=== PATIENT | female | born 1945 | race Caucasian/White ===

== ENCOUNTER → 2018-08-23 12:06 | Outpatient (CLI) | payer MEDICARE, SELFPAY ==
[2016-10-30 21:30] VITALS: BMI 52.5
[2018-08-23 14:05] LABS: Hematocrit 45.9 % (37-47); Hemoglobin 14.5 g/dl (12.0-15.0); Mean Corp Hgb Conc 31.6 g/gl (32-36); Mean Corpuscular Hgb 29.6 pg (27.0-32.0); Mean Corpuscular Volume 93.7 fL (81-99); Mean Platelet Vol. 9.6 fl (6.2-12.0); Platelet Count 229 K/mm3 (150-450); RBC Distribution Width CV 13.7 % (11.6-14.6); RBC Distribution Width SD 45.2 fl (35.1-43.9); Scan Indicated on CBC? Y/N NO
[2018-08-23 14:21] LABS: ALB/GLOB Ratio 0.8 RATIO (0.9-2.4); AST(SGOT) 25 U/L (15-37); Alanine Aminotransfer ALT/SGPT 35 U/L (13-56); Albumin, Serum 3.5 g/dL (3.2-5.0); Alkaline Phosphatase 105 U/L (45-117); Anion Gap 4 (5-15); BUN 18 mg/dL (7-18); BUN/Creat Ratio 15.1 RATIO (10-20); Calcium,Total 8.5 mg/dL (8.5-10.1); Chloride 105 mmol/L (98-107); Cholesterol 136 mg/dL (200); Creatinine, Serum 1.19 mg/dL (0.55-1.02); EST Glomerular Filtration Rate 47 mL/min (>60); Est Glom Filt Rate - Afr Amer 57 mL/min (>60); Globulin 4.2 g/dL (2.2-4.2); Glucose 89 mg/dL (74-106); High Density Lipoprotein 55 mg/dL; Protein, Total 7.7 g/dL (6.4-8.2); Sodium Level 138 mmol/L (136-145); Triglycerides 123 mg/dL; Very Low Density Lipoprotein 25 mg/dL (5-40)
== END ==
PROVIDERS: Family Provider Internal Medicine; PCP Internal Medicine; Referring Provider Internal Medicine; Visit Provider Internal Medicine
DX: E78.2 Mixed hyperlipidemia (principal); I10 Essential (primary) hypertension; Z79.899 Other long term (current) drug therapy
CPT/HCPCS: 36415; 80053; 80061; 85027

== ENCOUNTER 2020-04-26 10:23 | Emergency (ER) | payer MEDICARE, SELFPAY ==
[2020-04-26 10:24] VITALS: BP 156/74; PULSE 102; RESP 16; TEMP 36.2; O2SAT 97; BMI 47.5
[2020-04-26 10:31] VITALS: BMI 51.7
--- NOTE | 2020-04-26 10:54 | ED.DCSUM_ITS ---
- ER Visit Summary Date of Service: 04/26/20 Chief Complaint: Right leg redness History of Present Illness: The patient is a [address] Chun. She reports that she has chronic swelling of her lower extremities that is essentially unchanged. However, she developed redness to her right leg 2 weeks ago that is gradually worsened. She is also had weeping from the leg. She complains of an aching pain is 10-10 worsened to a 10 currently. Is worsened by dependent position. She relieved by elevating, support stockings, and keeping clean. She denies any numbness or weakness. She denies any constitutional symptoms. No fever, chills, nausea, or vomiting. On review of systems patient reports that she has a chronic cough that is unchanged. She denies any fever, chills, chest pain, or shortness of breath. She reports that her last bowel movement was 2 days ago. Typically she goes every 2 to 3 days. Physical Examination: Vitals: Stable. Afebrile. General: Well-nourished and well-developed. Head: Normocephalic atraumatic. Neck: Supple, no lymphadenopathy. No JVD. Nontender. Cardiovascular: Regular rate and rhythm. 2 out of 6 systolic murmur. Respiratory: No respiratory distress. Clear to auscultation bilaterally. Abdominal: Soft, nontender, nondistended, normal bowel sounds. No guarding, rebound, or peritoneal signs. Back: Nontender. Extremities: 2+ pitting edema lower extremities bilaterally right greater than left. There are chronic venous stasis changes bilaterally. However, on the right there is anterior erythema and warmth with multiple superficial erosions with weeping. There is no induration or fluctuance. She is neurovascular intact distally. However, I am unable to palpate a dorsalis pedis pulse bilaterally. She has less than 2-second capillary refill. Skin: Normal color, no rash. Neurologic: Alert and oriented ?3. Cranial nerves II through XII are intact. Normal strength and sensation. Psych: Normal affect. Test Results: CBC shows a white count of 13.8 with segmented neutrophils 78 lymphocytes of 6. Monocytes are 12. Chem-7 shows a glucose 107. LFTs show an albumin of 2.7, globulin 4.6, total bili 1.1. INR is 1.3. PTT is normal. Lactate is normal. Emergency Department Course and Treatment: Patient had an IV placed. She refused pain medications. She was given vancomycin and Unasyn IV. She feels well and would like to go home. Treatment Plan: Patient will be discharged with instructions to follow-up with her primary care physician in 2 days for a wound check. She is also given information for the wound clinic. She is placed on Bactrim and Keflex. Return to the emergency department for any worsening symptoms. Disposition: To home in improved and stable condition. Impression: 1. Peripheral edema, chronic. 2. Cellulitis right leg. This note was generated with [employer] dictation software. It may contain incorrect words, spelling, and punctuation that were not noted in review of the chart prior to signing ED Disposition - Plan for ED Patient: Instructions: Cellulitis Prescriptions: Smz/Tmp Ds [Bactrim Ds] 1 tablet PO BID #20 tablet Docusate Sodium [Colace] 100 mg PO DAILY #20 capsule Cephalexin [Keflex] 500 mg PO Q6 #40 capsule Hydrocodone Bitart/Apap 5-325 [[place] 5MG-325MG] 1 tablet PO Q4H PRN PRN 2 Days #10 tablet PRN Reason: Pain Referrals: Zeina Lam MD [Primary Care Provider] - 2 Days for wound check Clinic,Wound [None] - As soon as possible
[2020-04-26 11:37] VITALS: BP 139/94; PULSE 104; RESP 22; O2SAT 100
[2020-04-26 11:37] LABS: Absolute Lymphocyte Count 0.82 X10^3/uL (0.83-4.51); Absolute Neutrophil Count 10.8 X10^3/uL (2.0-7.7); Basophil# 0.07 X10^3/uL; Basophil% 0.5 % (0-1); Eosinophil# 0.46 X10^3/uL; Eosinophils% 3.3 % (0-5); Hematocrit 40.2 % (37-47); Hemoglobin 12.5 g/dL (12.0-15.0); Lymphocyte # 0.82 X10^3/ul (4.0); Lymphocyte % 5.9 % (19-41); Mean Corp Hgb Conc 31.1 g/dL (32-36); Mean Corpuscular Hgb 29.3 pg (27.0-32.0); Mean Corpuscular Volume 94.1 fL (81-99); Mean Platelet Vol. 9.6 fl (6.2-12.0); Monocyte# 1.59 X10^3/uL; Monocyte% 11.5 % (0-10); NRBC Flagged by Analyzer 0 % (0-5); Neutrophil % 78.2 % (47-70); POSITIVE DIFFERENTIAL YES; Platelet Count 293 K/mm3 (150-450); RBC Distribution Width CV 13.5 % (11.6-14.6); RBC Distribution Width SD 46.9 fl (35.1-43.9); Red Blood Count 4.27 M/mm3 (4.2-5.4); White Blood Count 13.8 K/mm3 (4.4-11.0)
[2020-04-26 11:40] LABS: ALB/GLOB Ratio 0.6 RATIO (0.9-2.4); AST(SGOT) 20 U/L (15-37); Alanine Aminotransfer ALT/SGPT 28 U/L (13-56); Albumin, Serum 2.7 g/dL (3.2-5.0); Alkaline Phosphatase 104 U/L (45-117); Anion Gap 2 (5-15); BUN 15 mg/dL (7-18); BUN/Creat Ratio 15.4 RATIO (10-20); Calcium,Total 8.7 mg/dL (8.5-10.1); Chloride 106 mmol/L (98-107); Creatinine, Serum 0.97 mg/dL (0.55-1.02); EST Glomerular Filtration Rate 59 mL/min (>60); Est Glom Filt Rate - Afr Amer 72 mL/min (>60); Estimated Creatinine Clearance 38.41 ml/min; Globulin 4.6 g/dL (2.2-4.2); Glucose 107 mg/dL (74-106); Protein, Total 7.3 g/dL (6.4-8.2); Sodium Level 138 mmol/L (136-145)
[2020-04-26 11:41] LABS: International Normalized Ratio 1.3; Prothrombin Time (Protime)PT. 15.3 SECONDS (11.7-14.9)
[2020-04-26 11:42] LABS: Partial Thromboplast Time 35.7 Seconds (24.1-36.2)
[2020-04-26 11:44] LABS: Differential Indicated SCAN CRITERIA MET
[2020-04-26 11:50] LABS: Lactic Acid 1.4 mmol/L (0.4-1.9)
[2020-04-26 12:05] LABS: Differential Comment SCANNED
[2020-04-26 12:47] VITALS: BP 125/82; PULSE 102; RESP 16; TEMP 37.3; O2SAT 97
[2020-04-26 14:05] VITALS: BP 127/83; PULSE 116; RESP 21; O2SAT 97
[2020-04-26 15:20] VITALS: BP 139/89; PULSE 112; RESP 23; O2SAT 97
[2020-04-28 13:29] LABS: Pathologist Review Reviewed
== END 2020-04-26 15:21 | disposition home or self-care (01) ==
LOC: ED 11:22
PROVIDERS: Emergency Provider Emergency Medicine; PCP Internal Medicine
DX: R60.9 Edema, unspecified (principal); L03.115 Cellulitis of right lower limb; E78.00 Pure hypercholesterolemia, unspecified; I10 Essential (primary) hypertension; Z79.82 Long term (current) use of aspirin
CPT/HCPCS: 80053; 83605; 85025; 85610; 85730; 87040; 87070; 87075; 87077; 87186; 87205; 96365; 96366; 96367; 99285; J7030; J7040; J0295

== ENCOUNTER 2020-06-08 21:56 | Inpatient (IN) | payer MEDICARE, SELFPAY ==
[2020-06-08 21:57] VITALS: BP 145/82; PULSE 68; RESP 17; TEMP 36.6; O2SAT 95; BMI 54.6
--- NOTE | 2020-06-08 22:19 | ED.DCSUM_ITS ---
History of Present Illness Chief Complaint: Cellulitis Informant: Patient Onset: Weeks - 1 wk or so - pt unsure, but states has been an issue off and on since March Context: Gradual Onset Timing: Continuous Quality: sore Location: right lower leg Current Severity: Moderate Maximum Severity: Severe Worsened by: trying to walk, palpation Relieved by: resting Associated Symptoms: seeping from leg, redness, swelling. no fevers/chills/systemic sx. Narrative: Patient presents saying that she thinks her right leg is getting worse despite being on 5 days of doxycycline and cephalexin for cellulitis. She states she does not know any of the details, but her son takes care of her, and takes care of her leg and dressing changes, and told her that she needs to come to the hospital because it is getting worse. The patient has some scarring and chronic stasis dermatitis without pain or erythema on the left lower extremity and states that is what her right lower extremity usually looks like. However she has no idea when the redness started in her right lower extremity, or how it looked when she started the antibiotics compared to how it looks now. She states it was not seeping when she started the antibiotics but now it is. When asked what is seeping out, she states she is not sure. She denies any numbness in her feet, but states that the pain and swelling is getting worse in her hindfoot/ankle area. She usually walks with a cane, however she is not able to get around now due to the pain. Prior similar symptoms: Yes - w/ cellulitis - Past Medical History (1) Hypertension Status: Chronic (2) Hyperlipidemia Status: Chronic Past Medical History - Allergies and Home Meds Allergies/Adverse Reactions: Allergies ciprofloxacin [From Cipro] Allergy (Verified 06/08/20 21:58) Rash Primary Care Physician: Zeina Lam MD [Primary Care Provider] - Surgical History: hysterectomy Lives: With Family Smoking Status: Never smoker Review of Systems General: Denies: Chills, Fever, Sweats Eyes: Denies: Visual changes - bilaterally, Diplopia ENT: Denies: Rhinorrhea, Sore throat Cardiovascular: Denies: Chest pain, Palpitations Respiratory: Denies: Dyspnea, Cough, Dyspnea on exertion Gastrointestinal: Denies: Abdominal pain, Nausea, Vomiting, Diarrhea, Melena, Hematochezia Genitourinary: Denies: Dysuria, Hematuria, Frequency Musculoskeletal: Reports: Swelling, Extremity Pain. Denies: Back pain Skin: Denies: Rash, Wounds Neurological: Denies: Headache, Weakness, Numbness Physical Exam Vital Signs/Narrative: Vital Signs Temp Pulse Resp BP Pulse Ox 06/08/20 21:57 97.8 F 68 17 145/82 H 95 Inital Vital Signs reviewed: Yes General: Well nourished, Well developed, Obese, No Acute Distress Head: Normocephalic, Atraumatic Eyes: Perrl, EOMI ENT: Moist mucous membranes, No rhinorrhea Neck: Supple, Nontender Cardiovascular: Regular rate, Regular rhythm, No murmurs. Negative for: Tachycardia Respiratory: No distress, CTA bilaterally, Chest nontender Abdomen: Soft, Nontender, Nondistended, Normal bowel sounds Back: Nontender, Normal Inspection Extremities: Tenderness - Right lower leg erythema/cellulitis, Edema - Bilateral lower extremity edema with signs of chronic stasis dermatitis without tenderness or infection on the left lower leg, with worse edema up to the proximal marcano with tender erythema, consistent with acute cellulitis down to the midfoot., - - No abscess in the right lower leg. There are several superficially open areas with no expressible discharge but they are moist. There is no pus present. Patient is able to move her ankle and knee and toes. All compartments are soft and nondistended. No lymphangitis. Skin: Rash - Right lower leg cellulitis, worse anteriorly Neurological: Alert, Oriented x3, Cranial nerves II-XII grossly intact, Normal Strength, Normal Sensation Psychological: Normal affect, Normal Mood Diagnostic/Tx/Re-eval Impressions Tibia/Fibula X-Ray 06/08/20 22:44 IMPRESSION: Soft tissue edema of the calf with what is thought to be vascular calcifications in the soft tissues about the upper ankle. Electronically Signed: Keenan Cash DO at 23:28 EST Tel [phone], Service support , 06/08/20 22:44 Tibia & Fibula 2 Views [RAD] Stat Laboratory Results 06/08/20 06/08/20 06/08/20 22:40 22:40 22:40 WBC 14.1 H RBC 4.75 Hgb 14.2 Hct 44.1 MCV 92.8 MCH 29.9 MCHC 32.2 RDW Std Deviation 48.8 H RDW Coeff of Damian 14.4 Plt Count 271 MPV 9.5 Immature Gran % (Auto) 0.600 Neut % (Auto) 73.6 H Lymph % (Auto) 10.4 L [place] % (Auto) 10.6 H Eos % (Auto) 4.0 Baso % (Auto) 0.8 Absolute Neuts (auto) 10.4 H Absolute Lymphs (auto) 1.47 Nucleated RBC % 0 Sodium Cancelled Potassium Cancelled Chloride Cancelled Carbon Dioxide Cancelled Anion Gap Cancelled BUN Cancelled Creatinine Cancelled Estim Creat Clear Calc Cancelled Est GFR (MDRD) Af Amer Cancelled Est GFR (MDRD) Non-Af Cancelled BUN/Creatinine Ratio Cancelled Glucose Cancelled Lactic Acid Cancelled Calcium Cancelled 06/08/20 06/08/20 23:25 23:25 WBC RBC Hgb Hct MCV MCH MCHC RDW Std Deviation RDW Coeff of Damian Plt Count MPV Immature Gran % (Auto) Neut % (Auto) Lymph % (Auto) [place] % (Auto) Eos % (Auto) Baso % (Auto) Absolute Neuts (auto) Absolute Lymphs (auto) Nucleated RBC % Sodium 138 Potassium 5.5 H Chloride 107 Carbon Dioxide 26.0 Anion Gap 5 BUN 16 Creatinine 1.01 Estim Creat Clear Calc 33.51 Est GFR (MDRD) Af Amer 68 Est GFR (MDRD) Non-Af 57 L BUN/Creatinine Ratio 15.8 Glucose 89 Lactic Acid 1.7 Calcium 9.0 - Rhythm Strip Rhythm Strip: A-fib Rate: 90 Ectopy: None - EKG Initial EKG Interpretation: No Acute Injury Pattern, Atrial Fibrillation, Non-Specific ST Changes - diffuse T-wve flattening. narrow QRS. - Medical Decision Making Labs obtained including x-ray which shows no evidence of osteomyelitis radiographically, patient started on vancomycin empirically after blood cultures obtained, there is nothing coming from the wound that is able to be cultured at this time. Patient clinically and hemodynamically stable. Plan is for admission to medical surgical floor for continued treatment with IV antibiotics and further evaluation. Patient's potassium returned at 5.5, in context of normal renal function. There is hemolysis present. Therefore this is probably false. EKG will be obtained to verify she does not have any changes of hyperkalemia, and the potassium will be repeated, and as long as it is okay we will admit her to medical surgical floor without telemetry. ED Disposition - Plan for ED Patient: Disposition: Acute Care Hospital [facility] Diagnosis: Cellulitis of right lower leg, Failure of outpatient treatment Referrals: Zeina Lam MD [Primary Care Provider] -
--- NOTE | 2020-06-08 22:44 | RAD_ITS ---
STUDY: X-RAY - RIGHT TIBIA AND FIBULA REASON FOR EXAM: Female, 75 years old. Right lower leg redness and edema. TECHNIQUE: view(s) of the tibia and fibula were obtained. COMPARISON: None. FINDINGS: Normal visualized tibia. Normal visualized fibula. There is no acute fracture, dislocation or destructive osseous pathology. There are degenerative changes of the knee and ankle. Swelling the soft tissues. There is irregular calcification within the soft tissues about the lower leg and ankle. Question venous calcifications. RAD/Tibia & Fibula 2 Views IMPRESSION: Soft tissue edema of the calf with what is thought to be vascular calcifications in the soft tissues about the upper ankle. Electronically Signed: Keenan Cash DO at 23:28 EST Tel [phone], Service support ,
[2020-06-08 22:51] LABS: Absolute Lymphocyte Count 1.47 X10^3/uL (0.83-4.51); Absolute Neutrophil Count 10.4 X10^3/uL (2.0-7.7); Basophil# 0.11 X10^3/uL; Basophil% 0.8 % (0-1); Eosinophil# 0.56 X10^3/uL; Hematocrit 44.1 % (37-47); Hemoglobin 14.2 g/dL (12.0-15.0); Lymphocyte # 1.47 X10^3/ul (4.0); Lymphocyte % 10.4 % (19-41); Mean Corp Hgb Conc 32.2 g/dL (32-36); Mean Corpuscular Hgb 29.9 pg (27.0-32.0); Mean Corpuscular Volume 92.8 fL (81-99); Mean Platelet Vol. 9.5 fl (6.2-12.0); Monocyte# 1.49 X10^3/uL; Monocyte% 10.6 % (0-10); NRBC Flagged by Analyzer 0 % (0-5); Neutrophil % 73.6 % (47-70); Platelet Count 271 K/mm3 (150-450); RBC Distribution Width CV 14.4 % (11.6-14.6); RBC Distribution Width SD 48.8 fl (35.1-43.9); Red Blood Count 4.75 M/mm3 (4.2-5.4); White Blood Count 14.1 K/mm3 (4.4-11.0)
[2020-06-08 22:58] VITALS: BP 152/70; PULSE 93; RESP 18; TEMP 36.5; O2SAT 96
--- NOTE | 2020-06-08 23:54 | PCM.HP.STD ---
Problem List (1) Cellulitis of right lower leg Status: Acute (2) Failure of outpatient treatment Status: Acute (3) Morbidly obese Status: Chronic (4) Hypertension Status: Chronic Qualifiers: Hypertension type: essential hypertension Qualified Code(s): I10 - Essential (primary) hypertension (5) Hyperlipidemia Status: Chronic Qualifiers: Hyperlipidemia type: unspecified Qualified Code(s): E78.5 - Hyperlipidemia, unspecified History of Present Illness Date of Admission: 06/08/20 Chief Complaint: RLE pain, edema, redness, worsening. The patient is a 75 y/o F w/ PMHx: Morbid Obesity, HTN, HLD, Chronic BL LE Lymphedema who presents to the [facility] ED on 06/08/20 with history of onset right lower extremity wound although she was seen previously for the similar area with increased discomfort, worse with walking, seeping from her leg with increased redness and swelling to the region recently on 5 days of doxycycline and Keflex for cellulitis without improvement prompting eventual ED evaluation. Patient notes that she has yet to follow-up with wound care and states intention to follow-up with wound care and Li specifically. Work-up in the ED included T 97.8, heart rate 68, BP 145/82, respiratory rate 17, 95% room air, CBC with WC 14.1, hemoglobin 13.2, platelet 271 with left shift, blood culture x2 pending per ED, right lower extremity film of the tibia and fibula region with soft tissue edema of the calf with likely vascular calcifications in the soft tissues about the upper ankle. In the ED patient ministered vancomycin. Noted 04/26/2020 wound culture with staph aureus with resistance to erythromycin and clindamycin only. Past Medical History Past Medical History (Chronic Problems): Chronic Problems Hypertension (Chronic) Hyperlipidemia (Chronic) Morbidly obese (Chronic) Allergies ciprofloxacin [From Cipro] Allergy (Verified 06/08/20 21:58) Rash Home Medications: Ambulatory Orders Medication Instructions Recorded Aspirin 81 mg PO DAILY 04/26/20 Atorvastatin Calcium [Lipitor] 10 mg PO QHS 04/26/20 Cephalexin [Keflex] 500 mg PO Q6 #40 cap 04/26/20 Lisinopril 20 mg PO DAILY 04/26/20 Metoprolol Tartrate 50 mg PO BID 04/26/20 Spironolactone 25 mg PO DAILY 04/26/20 Doxycycline 100 mg PO BID 06/08/20 Surgical History: hysterectomy - Remote hysterectomy with possible appendectomy at that time but unclear. Psychiatric History: No pertinent psych hx [employer] History: No pertinent [employer] history Lives: With Family - Patient notes that she has at home and her 3 children are living with her. Smoking Status: Never smoker Tobacco Use: Non-smoker Alcohol: None Drugs: None - *Family History Maternal History Items: Hypertension Paternal History Items: Hypertension Review of Systems Constitutional: Reports: Malaise, Fatigue. Denies: Anorexia, Chills, Fever, Weakness, Weight Change HEENT: Denies: Head Aches, Sinus Congestion, Sinus Drainage Cardiovascular: Reports: Edema. Denies: Chest Pain, Palpitations Respiratory: Denies: Cough, Shortness of breath at rest, Sputum production Gastrointestinal: Denies: Abdominal Pain, Nausea, Vomiting Genitourinary: Denies: Dysuria Musculoskeletal: Reports: Joint Pain, Leg Pain. Denies: Joint Tenderness Skin: Reports: Skin Changes. Denies: Rash, Wounds Neurological: Denies: Numbness, Tingling, Focal weakness Psychiatric: Denies: Anxiety, Depression, Homicidal Ideations, Suicidal Ideations Hematologic/ Lymphatic: Denies: Easy Bruising, Easy Bleeding VTE Information - Inpt Only VTE Present on Admission: No VTE Mechan Device Prophylaxis: SCD's VTE Pharm Prophylaxis ordered?: Yes Patient Problems: Active and Suspected Problems Cellulitis of right lower leg (Acute) Failure of outpatient treatment (Acute) Subjective: Patient seated upright in the ED bed, fatigued appearance otherwise no acute distress. Objective: Physical Examination: General: awake, alert, oriented x 3 and cooperative, seated upright in the ED bed in no apparent distress. Skin: normal color, turgor, no icterus, cyanosis except significant right lower extremity appearance of erythema from ankle to mid marcano, circumferential, thickened skin, stasis disease, chronic lymphedema to lower extremities. HEENT: AT/NC, EOMI, PERRLA, MMM, no carotid bruits, difficult to assess JVD secondary to thickened neck. Lungs: Diminished breath sounds, moderate decrease BL bases, moderate effort, no rales, ronchi or wheezing. Heart: Regular rate and rhythm; no gallop, rub audible. Abdomen: soft, morbidly obese, NTTP, ND, normal BS, unable to discern HSM secondary to morbidly obese habitus. Extremities: no cyanosis or clubbing, see skin, edema is noted. Neurological: patient awake, alert, oriented x 3; cognitive function intact; pupils equally reactive to light and accomodation; cranial nerves II-XII grossly normal, moving all 4 extremities, no focal deficits, strength mildly to moderately global decrease secondary to current complaints. Psychiatric: affect appears fatigued otherwise normal, no acute evidence of depressive or anxiety feelings. - Physical Exam Vitals/I&O's: Vital Signs Temp Pulse Resp BP Pulse Ox 97.8 F 68 17 145/82 H 95 06/08/20 21:57 06/08/20 21:57 06/08/20 21:57 06/08/20 21:57 06/08/20 21:57 Oxygen Delivery Method Room Air Weight: 280 lb Body Mass Index (BMI) 54.6 Laboratory Results 06/08/20 22:40: WBC 14.1 H, RBC 4.75, Hgb 14.2, Hct 44.1, MCV 92.8, MCH 29.9, MCHC 32.2, RDW Std Deviation 48.8 H, RDW Coeff of Damian 14.4, Plt Count 271, MPV 9.5, Immature Gran % (Auto) 0.600, Neut % (Auto) 73.6 H, Lymph % (Auto) 10.4 L, [place] % (Auto) 10.6 H, Eos % (Auto) 4.0, Baso % (Auto) 0.8, Absolute Neuts (auto) 10.4 H, Absolute Lymphs (auto) 1.47, Nucleated RBC % 0 06/08/20 22:40: Sodium Cancelled, Potassium Cancelled, Chloride Cancelled, Carbon Dioxide Cancelled, Anion Gap Cancelled, BUN Cancelled, Creatinine Cancelled, Estim Creat Clear Calc Cancelled, Est GFR (MDRD) Af Amer Cancelled, Est GFR (MDRD) Non-Af Cancelled, BUN/Creatinine Ratio Cancelled, Glucose Cancelled, Calcium Cancelled 06/08/20 22:40: Lactic Acid Cancelled 06/08/20 23:25: Lactic Acid Pending 06/08/20 23:25: Sodium Pending, Potassium Pending, Chloride Pending, Carbon Dioxide Pending, Anion Gap Pending, BUN Pending, Creatinine Pending, Est GFR (MDRD) Af Amer Pending, Est GFR (MDRD) Non-Af Pending, BUN/Creatinine Ratio Pending, Glucose Pending, Calcium Pending Current Medications Vancomycin HCl 2,000 mg/ (Sodium Chloride) 540 mls @ 250 mls/hr IV X1 ONE Stop: 06/09/20 00:39 Last Admin: 06/08/20 22:40 Dose: 250 mls/hr Documented by: Assessment/Plan All Active Problems Cellulitis of right lower leg (Acute) Failure of outpatient treatment (Acute) The patient is a 75 y/o F w/ PMHx: Morbid Obesity, HTN, HLD, Chronic BL LE Lymphedema who presents to the [facility] ED on 06/08/20 with history of onset right lower extremity wound although she was seen previously for the similar area with increased discomfort, worse with walking, seeping from her leg with increased redness and swelling to the region recently on 5 days of doxycycline and Keflex for cellulitis without improvement prompting eventual ED evaluation. 1. RLE Extremity Cellulitis, failed outpatient antibiotic therapy, complicated by #2: Will admit to [facility], maintain on IV vancomycin given prior wound culture review, will obtain Wound Cx, will obtain Wound MRSA PCR, plan repeat CBC in AM, continue affected extremity elevation above heart when seated and in bed, monitor erythema outline with VS checks, will obtain duplex ultrasound of the lower extremity, as needed pain regimen antiemetic regimen. 2. Chronic bilateral lower extremity lymphedema: We will implement in addition to wound care, snug Barber wraps, elevation, IV Lasix to assist in wound healing given profound edema. 3. Hypertension: Continue home regimen including metoprolol, lisinopril, spironolactone, IV lasix as noted, PRN hydralazine. 4. Hyperlipidemia: Continue home statin regimen. 5. Morbid Obesity: Weight loss and lifestyle changes encouraged, nutrition consulted. 6. DVT prophylaxis: SCDs, Lovenox. 7. CODE status: Patient ALEXIA is her son Riaz, she is not sure if a living will is in place. Encouraged her to review these items routinely and assure these are updated. Discussed CODE status at length including difference between FULL code, DNR-CCA and DNR-CC status. Following discussions about the differences in these status, requested Full Code status. From discussions these have likely not been discussed with her son and encouraged her to review these discussions upon her discharge with her family. Advanced Care Planning Face to Face Time: 16 minutes. Inpatient E&M: 43989 Init Hosp L3 Procedures: 48760 Advncd Care Plan 30 Min
[2020-06-08 23:55] LABS: Anion Gap 5 (5-15); BUN 16 mg/dL (7-18); BUN/Creat Ratio 15.8 RATIO (10-20); Chloride 107 mmol/L (98-107); Creatinine, Serum 1.01 mg/dL (0.55-1.02); EST Glomerular Filtration Rate 57 mL/min (>60); Est Glom Filt Rate - Afr Amer 68 mL/min (>60); Estimated Creatinine Clearance 33.51 ml/min; Glucose 89 mg/dL (74-106); Potassium 5.5 mmol/L (3.5-5.1); Sodium Level 138 mmol/L (136-145)
[2020-06-08 23:58] VITALS: BP 150/98; PULSE 101; RESP 20; TEMP 36.4; O2SAT 95
[2020-06-08 23:58] LABS: Lactic Acid 1.7 mmol/L (0.4-1.9)
--- NOTE | 2020-06-08 23:58 | EKG12_ITS ---
Test Reason : DYSRHYTHMIA Blood Pressure : / mmHG Vent. Rate : 089 BPM Atrial Rate : 267 BPM P-R Int : 000 ms QRS Dur : 066 ms QT Int : 312 ms P-R-T Axes : 000 069 178 degrees QTc Int : 379 ms Atrial fibrillation Low voltage QRS Nonspecific ST and T wave abnormality Abnormal ECG Confirmed by JOCELYN ARGUETA, HAZEL ([id number]), assignment desk editor MACARIO CONLEY ([id number]) on 06/10/2020 8:55:14 AM Referred By: Fatimah Nieves Confirmed By:HAZEL BANKS MD
[2020-06-09] VITALS (9 sets, daily range): BP systolic 100–150; BP diastolic 60–98; PULSE 71–106; RESP 16–20; TEMP 36.4–37.3; O2SAT 93–98; BMI 54.1
--- NOTE | 2020-06-09 00:40 | VDLE_ITS ---
Reason For Study: Pain RIGHT GSV is normal. CFV is compressible, spontaneous, phasic, competent and demonstrates normal augmentation. FV is compressible, spontaneous, phasic, competent and demonstrates normal augmentation. FV distal visualized with color only, pt unable to tolerate compression. POP V is compressible, spontaneous, phasic, competent and demonstrates normal augmentation. T/P Trunk is compressible. PTV is compressible. RT PerV is compressible. Procedure This is a venous duplex using B-mode, color flow and spectral Doppler. Exam performed portable in patient room. A preliminary report was called and/or faxed to [facility] RN. Interpretation Summary There is no evidence of right lower extremity deep vein thrombosis. Right great saphenous vein appears patent and compressible segmentally. Technical limitations with inability to compress the right distal femoral vein due to patient discomfort. Ordering Physician: Fatimah Nieves Referring Physician: Zeina Lam Performed By: Saida Sunshine RVT
--- NOTE | 2020-06-09 01:02 | ED.RN ---
this RN called son to inform him of pt admission
--- NOTE | 2020-06-09 01:27 | PCM.RX.CS ---
Consult Pharmacy has been consulted to manage selected antiobiotic: Vancomycin Type of Consult: New start Suspected Infection: Skin/Soft tissue Labs: Sodium 138 mmol/L (136-145) 06/08/20 23:25 Potassium 4.0 mmol/L (3.5-5.1) 06/09/20 00:29 Chloride 107 mmol/L (98-107) 06/08/20 23:25 Carbon Dioxide 26.0 mmol/L (21.0-32.0) 06/08/20 23:25 Anion Gap 5 (5-15) 06/08/20 23:25 BUN 16 mg/dL (7-18) 06/08/20 23:25 Creatinine 1.01 mg/dL (0.55-1.02) 06/08/20 23:25 Est GFR (MDRD) Af Amer 68 mL/min (>60) 06/08/20 23:25 Est GFR (MDRD) Non-Af 57 mL/min (>60) L 06/08/20 23:25 BUN/Creatinine Ratio 15.8 RATIO (10-20) 06/08/20 23:25 Glucose 89 mg/dL (74-106) 06/08/20 23:25 Weight used for dosin.6 kg Estimated Creatinine Clearance: 57.1 Goal Trough: 15-20 mcg/mL Pharmacy Plan for Drug Dosing: Pharmacy Service will continue to monitor and adjust dosing as required. Medications Vancomycin HCl 1,250 mg/ (Sodium Chloride) 275 mls @ 167 mls/hr IV Q12H PATRICIA Discontinued Medications Vancomycin HCl 2,000 mg/ (Sodium Chloride) 540 mls @ 250 mls/hr IV X1 ONE Stop: 06/09/20 00:39 Last Admin: 06/08/20 22:40 Dose: 250 mls/hr Documented by: Follow-Up Labs: Trough Vancomycin Labs to be done on [date and time ordered]: 06/10 @ 0953
[2020-06-09] MEDS: Furosemide 40 MG/4 ML Vial IV ×2 (01:45→08:07)
--- NOTE | 2020-06-09 02:16 | NURSING ---
Pt refused both scd's and sheldon wraps.
[2020-06-09 03:11] LABS: M R Staph aureus DNA By PCR Negative (Negative); Probe Check PASS; Specimen Processing Control PASS; Staph aureus DNA By PCR NEGATIVE (Negative)
[2020-06-09 07:01] LABS: Absolute Lymphocyte Count 1.54 X10^3/uL (0.83-4.51); Basophil% 0.8 % (0-1); Eosinophil# 0.52 X10^3/uL; Eosinophils% 4.2 % (0-5); Hematocrit 45.5 % (37-47); Hemoglobin 14.3 g/dL (12.0-15.0); Lymphocyte # 1.54 X10^3/ul (4.0); Lymphocyte % 12.4 % (19-41); Mean Corp Hgb Conc 31.4 g/dL (32-36); Mean Corpuscular Hgb 29.2 pg (27.0-32.0); Mean Platelet Vol. 9.2 fl (6.2-12.0); Monocyte# 1.22 X10^3/uL; Monocyte% 9.8 % (0-10); NRBC Flagged by Analyzer 0 % (0-5); Neutrophil % 72.5 % (47-70); Platelet Count 286 K/mm3 (150-450); RBC Distribution Width CV 14.2 % (11.6-14.6); RBC Distribution Width SD 49.1 fl (35.1-43.9); Red Blood Count 4.89 M/mm3 (4.2-5.4); White Blood Count 12.4 K/mm3 (4.4-11.0)
[2020-06-09 07:27] LABS: ALB/GLOB Ratio 0.9 RATIO (0.9-2.4); AST(SGOT) 17 U/L (15-37); Alanine Aminotransfer ALT/SGPT 20 U/L (13-56); Albumin, Serum 3.5 g/dL (3.2-5.0); Alkaline Phosphatase 123 U/L (45-117); Anion Gap 7 (5-15); BUN 14 mg/dL (7-18); BUN/Creat Ratio 13.7 RATIO (10-20); Chloride 105 mmol/L (98-107); Creatinine, Serum 1.02 mg/dL (0.55-1.02); EST Glomerular Filtration Rate 56 mL/min (>60); Est Glom Filt Rate - Afr Amer 68 mL/min (>60); Estimated Creatinine Clearance 33.18 ml/min; Globulin 4.1 g/dL (2.2-4.2); Glucose 90 mg/dL (74-106); Potassium 3.7 mmol/L (3.5-5.1); Protein, Total 7.6 g/dL (6.4-8.2); Sodium Level 140 mmol/L (136-145)
--- NOTE | 2020-06-09 07:31 | PCS.PANDOC ---
PANDEMIC DOCUMENTATION INITIATED: Date: 05/12/2020 Time:
[2020-06-09] MEDS: Enoxaparin 40 MG/0.4 ML Syringe SC ×2 (08:05→21:27)
[2020-06-09] MEDS: Lisinopril 20 MG Tablet PO (08:07)
[2020-06-09] MEDS: Metoprolol Tartrate 50 MG Tablet PO ×2 (08:08→21:27)
[2020-06-09] MEDS: Spironolactone 25 MG Tablet PO (08:08)
[2020-06-09] MEDS: Aspirin 81 MG TAB.CHEW PO (08:08)
[2020-06-09] MEDS: 0.9% Saline Lock 10 ML Syringe IV ×3 (08:08→22:15)
--- NOTE | 2020-06-09 08:36 | NURSING ---
Was asked to see patient for redness to the right lower leg. removed dressing. there was very minimal serous drainage on the old dressing. still some redness noted. there are no large wounds noted, just some weeping areas. wound cultures are still pending. pt states she cannot tolerated BETTY wraps. states they make my legs too hot. pt did allow this nurse to apply dry dressings and wrap with kerlix. pt tolerated well. right leg elevated up on a pillow. see skin photos.
--- NOTE | 2020-06-09 09:15 | NURSING ---
skin photo: right anterior lower leg
--- NOTE | 2020-06-09 09:16 | NURSING ---
skin photo: right posterior lower leg
--- NOTE | 2020-06-09 10:35 | CASEMGMT ---
RN CM Face to Face with patient for initial transition planning/care coordination assessment. RN CM introduced self and role at [facility]. Patient lying in bed, alert and oriented. Patient willing to participate in assessment and is able to answer all questions appropriately. Care providers, pharmacy, and demographics verified. Patient wishes to discharge home, denies need for home health at this time. Patient states she has no further needs or concerns at this time. CM to follow for discharge planning needs that may arise. PCP: Genaro Specialists: none Preferred Pharmacy: [facility] Insurance: [facility] Prescription Benefit: yes Living Will/HPOA: yes, Riaz Bernal son LNOK: sons Living Arrangements: Patient lives with 2 sons and daughter in a 2 story home with bed and bath on first floor. Patient had ramp to enter the home. Patient states that sons assist with care at times. Transportation: sons DME/HHC: Patient states she has BSC, cane, walker, wheelchair, and grab bars at home. Patient denies previous HHC. Disposition Plan: Patient to discharge home with family support and follow-up plans in place. Saida LARA, RN, CM
--- NOTE | 2020-06-09 13:45 | PN_ITS ---
Patient Problems: Active and Suspected Problems Cellulitis of right lower leg (Acute) Failure of outpatient treatment (Acute) Subjective: Patient seen and examined. She was admitted with a complaint of RLE redness, pain and swelling which was gradually worsening.She had been on a 5 day course of doxycycline and Keflex for cellulitis, but symptoms didnt improve. She is being managed for cellulitis of the RLE, and is on IV vancomycin Patient has no complaints this morning. She said pain in her right lower extremity was better. She denied any fever or chills. Imaging done in the ED showed soft tissue edema of the cough with likely vascular calcification in the soft tissues around the right ankle. Wound cultures done on 04/26/2020 grew Staph aureus with resistance to erythromycin and clindamycin. Review of systems otherwise negative. Her tachycardia has resolved and she has remained afebrile. WBC is down to 12.4 today from 14. Vitals/I&O's: Vital Signs Temp Pulse Resp BP Pulse Ox 98.3 F 95 20 H 100/61 95 06/09/20 10:59 06/09/20 10:59 06/09/20 10:59 06/09/20 10:59 06/09/20 10:59 Oxygen Delivery Method Room Air Weight: 275 lb 2.19 oz Body Mass Index (BMI) 54.1 Intake and Output for Last 24 Hours 06/07/20 06/08/20 06/09/20 23:59 23:59 23:59 Intake Total 540 / 540 Output Total 3450 / 3450 Balance -2910 / -2910 General: Alert, Oriented x3, Cooperative, No apparent distress HEENT: Atraumatic, PERRLA, EOMI, Normocephalic Oral: Dry Mucosa Neck: Supple, No JVD, Negative Carotid Bruits Lungs: Clear to auscultation, Normal air movement, No rhonchi, No wheeze Cardiovascular: Regular rate, Regular Rhythm, Normal S1, Normal S2, No murmurs Abdomen: Bowel Sounds Present, Soft, Non Tender, Non-Distended, No Hepato- splenomegaly Extremities: No clubbing, No cyanosis, No edema, Capillary Refill Less than 3 Seconds Skin: - - RLE bandaged from mid marcano to foot. Musculoskeletal: No Tenderness to Palpation of Joints or Extremities Lymphatic: No Cervical, Supraclavicular, or Inguinal Adenopathy Neurological: Cranial nerves II-XII grossly intact, Neuro grossly intact, Motor Exam 5/5 strength throughout Psych/Mental Status: Normal Affect, Appropriate, Alert and oriented to time, place, person, mood and affect Microbiology Past 72 Hours 06/09/20 01:34 Wound - Leg, Right Gram Stain - Final Laboratory Results 06/08/20 22:40: WBC 14.1 H, RBC 4.75, Hgb 14.2, Hct 44.1, MCV 92.8, MCH 29.9, MCHC 32.2, RDW Std Deviation 48.8 H, RDW Coeff of Damian 14.4, Plt Count 271, MPV 9.5, Immature Gran % (Auto) 0.600, Neut % (Auto) 73.6 H, Lymph % (Auto) 10.4 L, Island % (Auto) 10.6 H, Eos % (Auto) 4.0, Baso % (Auto) 0.8, Absolute Neuts (auto) 10.4 H, Absolute Lymphs (auto) 1.47, Nucleated RBC % 0 06/08/20 22:40: Sodium Cancelled, Potassium Cancelled, Chloride Cancelled, Carbon Dioxide Cancelled, Anion Gap Cancelled, BUN Cancelled, Creatinine Cancelled, Estim Creat Clear Calc Cancelled, Est GFR (MDRD) Af Amer Cancelled, Est GFR (MDRD) Non-Af Cancelled, BUN/Creatinine Ratio Cancelled, Glucose Cancelled, Calcium Cancelled 06/08/20 22:40: Lactic Acid Cancelled 06/08/20 23:25: Lactic Acid 1.7 06/08/20 23:25: Sodium 138, Potassium 5.5 H, Chloride 107, Carbon Dioxide 26.0, Anion Gap 5, BUN 16, Creatinine 1.01, Estim Creat Clear Calc 33.51, Est GFR (MDRD) Af Amer 68, Est GFR (MDRD) Non-Af 57 L, BUN/Creatinine Ratio 15.8, Glucose 89, Calcium 9.0 06/09/20 00:29: Potassium 4.0 06/09/20 00:29: Magnesium 2.0 06/09/20 01:34: S.aureus Protein A PCR NEGATIVE, MRSA (PCR) Negative 06/09/20 06:20: WBC 12.4 H, RBC 4.89, Hgb 14.3, Hct 45.5, MCV 93.0, MCH 29.2, MCHC 31.4 L, RDW Std Deviation 49.1 H, RDW Coeff of Damian 14.2, Plt Count 286, MPV 9.2, Immature Gran % (Auto) 0.300, Neut % (Auto) 72.5 H, Lymph % (Auto) 12.4 L, Island % (Auto) 9.8, Eos % (Auto) 4.2, Baso % (Auto) 0.8, Absolute Neuts (auto) 9.0 H, Absolute Lymphs (auto) 1.54, Nucleated RBC % 0 06/09/20 06:20: Sodium 140, Potassium 3.7, Chloride 105, Carbon Dioxide 28.0, Anion Gap 7, BUN 14, Creatinine 1.02, Estim Creat Clear Calc 33.18, Est GFR (MDRD) Af Amer 68, Est GFR (MDRD) Non-Af 56 L, BUN/Creatinine Ratio 13.7, Glucose 90, Calcium 9.0, Total Bilirubin 1.40 H, AST 17, ALT 20, Alkaline Phosphatase 123 H, Total Protein 7.6, Albumin 3.5, Globulin 4.1, Albumin/Globulin Ratio 0.9 Diagnostic Data Tibia/Fibula X-Ray 06/08/20 22:44 IMPRESSION: Soft tissue edema of the calf with what is thought to be vascular calcifications in the soft tissues about the upper ankle. Electronically Signed: Keenan Cash DO at 23:28 EST Tel [phone], Service support , Current Medications Acetaminophen (Acetaminophen 325 Mg Tablet) 650 mg PO Q6H PRN PRN PRN Reason: Pain Score 1-10/Temp > 100.7 F Al Hydroxide/Mg Hydroxide (Mag Hydrox/Al Hydrox/Simeth 30 Ml Udc) 30 ml PO Q6H PRN PRN PRN Reason: Gastric Burning Albuterol Sulfate (Albuterol 2.5 Mg/3 Ml Vial.Neb.) 2.5 mg INHALATION Q2H PRN PRN PRN Reason: Dyspnea, wheezing Aspirin (A[facility]in 81 Mg Tab.Chew) [facility] Last Admin: 06/09/20 08:08 Dose: 81 mg Documented by: Atorvastatin Calcium (Atorvastatin Calcium 10 Mg Tablet) 10 mg PO QHS [facility] Enoxaparin Sodium (Enoxaparin 40 Mg/0.4 Ml Syringe) 40 mg SC BID [facility] Last Admin: 06/09/20 08:05 Dose: 40 mg Documented by: Furosemide (Furosemide 40 Mg/4 Ml Vial) 40 mg IV DAILY [facility] Last Admin: 06/09/20 08:07 Dose: 40 mg Documented by: Guaifenesin (Guaifenesin 10 Ml Udc (200mg/10ml)) 20 ml PO Q4H PRN PRN PRN Reason: COUGH Hydralazine HCl (Hydralazine 20 Mg/Ml Vial) 10 mg IV Q4H PRN PRN PRN Reason: SBP > 160 Vancomycin IV Pharmacy to Dose (1 ea/ Sodium Chloride) 500 mls @ 250 mls/hr IV X1 PRN; Protocol PRN Reason: Rx to Dose Vancomycin HCl 1,250 mg/ (Sodium Chloride) 275 mls @ 167 mls/hr IV Q12H [facility] Last Admin: 06/09/20 11:01 Dose: 167 mls/hr Documented by: Lisinopril (Lisinopril 20 Mg Tablet) 20 mg PO DAILY [facility] Last Admin: 06/09/20 08:07 Dose: 20 mg Documented by: Magnesium Hydroxide (Magnesium Hydroxide 30 Ml Udc) 30 ml PO DAILY PRN PRN PRN Reason: Constipation Melatonin (Melatonin 3 Mg Tablet) 3 mg PO QHS PRN PRN PRN Reason: INSOMNIA Metoprolol Tartrate (Metoprolol Tartrate 50 Mg Tablet) 50 mg PO BID [facility] Last Admin: 06/09/20 08:08 Dose: 50 mg Documented by: Morphine Sulfate (Morphine 2 Mg/Ml Syringe) 2 mg IV Q3H PRN PRN PRN Reason: Pain Score 6-10 Nitroglycerin (Nitroglycerin (Inpatient Use) 0.4 Mg Tab.Subl) 0.4 mg SUBLINGUAL Q5M PRN PRN Reason: CARDIAC/CHEST PAIN Nutritional Formula (Lactose Free) (Ensure Enlive 120 Ml Liquid) 120 ml PO 4X/DAY [facility] Last Admin: 06/09/20 08:06 Dose: 120 ml Documented by: Ondansetron HCl (Ondansetron 4 Mg/2 Ml Vial) 4 mg IV Q8H PRN PRN PRN Reason: NAUSEA/VOMITING Oxycodone HCl (Oxycodone 5 Mg Tablet) 5 mg PO Q4H PRN PRN PRN Reason: Pain Score 4-5 Prochlorperazine Edisylate (Prochlorperazine 10 Mg/2 Ml Vial) 5 mg IV Q4H PRN PRN PRN Reason: Breakthrough nausea/vomiting Psyllium Hydrophilic Mucilloid (Psyllium 1 Packet) 1 packet PO DAILY PRN PRN PRN Reason: Constipation Senna/Docusate Sodium (Senna/Docusate Sodium 1 Tablet) 2 tablet PO BID PRN PRN PRN Reason: Constipation Sodium Chloride (0.9% Saline Lock 10 Ml Syringe) 10 - 40 ml IV UD PRN PRN Reason: SALINE FLUSH Last Admin: 06/09/20 11:01 Dose: 10 ml Documented by: Spironolactone (Spironolactone 25 Mg Tablet) 25 mg PO DAILY [facility] Last Admin: 06/09/20 08:08 Dose: 25 mg Documented by: Throat Lozenges (Benzocaine/Menthol 1 Lozenge) 1 lozenge MUCOUS MEM Q2H PRN PRN PRN Reason: SORE THROAT STROKE Vital Signs/Narrative: Vital Signs Temp Pulse Resp BP Pulse Ox 06/09/20 10:59 98.3 F 95 20 H 100/61 95 Medical Necessity - Tobacco Use Smoking Status: Never smoker Tobacco Use: Non-smoker Assessment/Plan All Active Problems Cellulitis of right lower leg (Acute) Failure of outpatient treatment (Acute) #RLE cellulitis * failed outpatient treatment * on IV vancomycin * wound cultures pending * duplex of RLE was negative for DVT * wound care on board * # Chronic Bilateral LE edema * BETTY wraps * being diuresed with lasix also * wound care on board * # Hypertension: on metoprolol, lisinopril and spironolactone. Hyperkalemia from yesterday has resolved. #Hyperkalemia: Potassium now down to 3.7 from 5.5 on admission. # Morbid obesity: weight and lifestyle changes encouraged. DVT prophylaxis: SCDs, lovenox. Inpatient E&M: [id number] [facility] Hosp L2
[2020-06-09] MEDS: Atorvastatin Calcium 10 MG Tablet PO (21:27)
[2020-06-10] VITALS (7 sets, daily range): BP systolic 93–119; BP diastolic 68–80; PULSE 59–91; RESP 16–18; TEMP 36–36.8; O2SAT 93–96
[2020-06-10 07:15] LABS: Absolute Lymphocyte Count 1.62 X10^3/uL (0.83-4.51); Absolute Neutrophil Count 6.8 X10^3/uL (2.0-7.7); Basophil# 0.08 X10^3/uL; Basophil% 0.8 % (0-1); Eosinophils% 4.9 % (0-5); Hematocrit 43.7 % (37-47); Hemoglobin 13.7 g/dL (12.0-15.0); Lymphocyte # 1.62 X10^3/ul (4.0); Lymphocyte % 15.9 % (19-41); Mean Corp Hgb Conc 31.4 g/dL (32-36); Mean Corpuscular Hgb 29.1 pg (27.0-32.0); Mean Platelet Vol. 9.3 fl (6.2-12.0); Monocyte# 1.14 X10^3/uL; Monocyte% 11.2 % (0-10); NRBC Flagged by Analyzer 0 % (0-5); Neutrophil # 6.84 X10^3/uL (2.7-7.7); Neutrophil % 66.9 % (47-70); Platelet Count 242 K/mm3 (150-450); RBC Distribution Width CV 14.3 % (11.6-14.6); White Blood Count 10.2 K/mm3 (4.4-11.0)
[2020-06-10 07:38] LABS: Anion Gap 7 (5-15); BUN 28 mg/dL (7-18); BUN/Creat Ratio 27.7 RATIO (10-20); Calcium,Total 8.5 mg/dL (8.5-10.1); Chloride 102 mmol/L (98-107); Creatinine, Serum 1.01 mg/dL (0.55-1.02); EST Glomerular Filtration Rate 57 mL/min (>60); Est Glom Filt Rate - Afr Amer 68 mL/min (>60); Estimated Creatinine Clearance 33.51 ml/min; Glucose 80 mg/dL (74-106); Potassium 3.8 mmol/L (3.5-5.1); Sodium Level 136 mmol/L (136-145)
[2020-06-10] MEDS: Aspirin 81 MG TAB.CHEW PO (07:56)
[2020-06-10] MEDS: Spironolactone 25 MG Tablet PO (07:56)
[2020-06-10] MEDS: 0.9% Saline Lock 10 ML Syringe IV ×2 (07:56→11:57)
[2020-06-10] MEDS: Furosemide 40 MG/4 ML Vial IV (07:56)
[2020-06-10] MEDS: Lisinopril 20 MG Tablet PO (07:57)
[2020-06-10] MEDS: Enoxaparin 40 MG/0.4 ML Syringe SC ×2 (07:57→21:27)
--- NOTE | 2020-06-10 08:48 | NURSING ---
In to reassess the redness to the right lower leg. there is still a moderate amount of redness and some warmth noted. minimal drainage noted on the old dressing. new dry dressing applied and wrapped with kerlix. heels elevated up off the bed on pillows.
[2020-06-10 11:11] LABS: Vancomycin, Trough Level 23.6 ug/mL (5.0-15.0)
--- NOTE | 2020-06-10 11:24 | PN_ITS ---
Patient Problems: Active and Suspected Problems Cellulitis of right lower leg (Acute) Failure of outpatient treatment (Acute) Subjective: Patient seen and examined this morning. She has no complaints. Review of systems otherwise negative. WBC has trended down to 10.2. Vitals/I&O's: Vital Signs Temp Pulse Resp BP Pulse Ox 98.2 F 59 L 18 107/70 94 06/10/20 07:49 06/10/20 08:12 06/10/20 07:49 06/10/20 08:12 06/10/20 07:49 Oxygen Delivery Method Room Air Weight: 270 lb 7 oz Body Mass Index (BMI) 54.1 Intake and Output for Last 24 Hours 06/08/20 06/09/20 06/10/20 23:59 23:59 23:59 Intake Total 1090 / 1090 Output Total 3950 / 3950 300 / 300 Balance -2860 / -2860 -300 / -300 General: Alert, Oriented x3, Cooperative, No apparent distress HEENT: Atraumatic, PERRLA, EOMI, Normocephalic Oral: Dry Mucosa Neck: Supple, No JVD, Negative Carotid Bruits Lungs: Clear to auscultation, Normal air movement, No rhonchi, No wheeze Cardiovascular: Regular rate, Regular Rhythm, Normal S1, Normal S2, No murmurs Abdomen: Bowel Sounds Present, Soft, Non Tender, Non-Distended, No Hepato- splenomegaly Extremities: No clubbing, No cyanosis, No edema, Capillary Refill Less than 3 Seconds Skin: - - RLE bandaged from mid marcano to foot. Musculoskeletal: No Tenderness to Palpation of Joints or Extremities Lymphatic: No Cervical, Supraclavicular, or Inguinal Adenopathy Neurological: Cranial nerves II-XII grossly intact, Neuro grossly intact, Motor Exam 5/5 strength throughout Psych/Mental Status: Normal Affect, Appropriate, Alert and oriented to time, place, person, mood and affect Microbiology Past 72 Hours 06/09/20 01:34 Wound - Leg, Right Gram Stain - Final 06/09/20 01:34 Wound - Leg, Right Wound Culture - Preliminary No growth-Final to follow Laboratory Results 06/10/20 06:56: WBC 10.2, RBC 4.70, Hgb 13.7, Hct 43.7, MCV 93.0, MCH 29.1, MCHC 31.4 L, RDW Std Deviation 49.0 H, RDW Coeff of Damian 14.3, Plt Count 242, MPV 9.3, Immature Gran % (Auto) 0.300, Neut % (Auto) 66.9, Lymph % (Auto) 15.9 L, Catron % (Auto) 11.2 H, Eos % (Auto) 4.9, Baso % (Auto) 0.8, Absolute Neuts (auto) 6.8, Absolute Lymphs (auto) 1.62, Nucleated RBC % 0 06/10/20 06:56: Sodium 136, Potassium 3.8, Chloride 102, Carbon Dioxide 27.0, Anion Gap 7, BUN 28 H, Creatinine 1.01, Estim Creat Clear Calc 33.51, Est GFR (MDRD) Af Amer 68, Est GFR (MDRD) Non-Af 57 L, BUN/Creatinine Ratio 27.7 H, Glucose 80, Calcium 8.5 06/10/20 10:27: Vancomycin Trough 23.6 H Current Medications Acetaminophen (Acetaminophen 325 Mg Tablet) 650 mg PO Q6H PRN PRN PRN Reason: Pain Score 1-10/Temp > 100.7 F Al Hydroxide/Mg Hydroxide (Mag Hydrox/Al Hydrox/Simeth 30 Ml Udc) 30 ml PO Q6H PRN PRN PRN Reason: Gastric Burning Albuterol Sulfate (Albuterol 2.5 Mg/3 Ml Vial.Neb.) 2.5 mg INHALATION Q2H PRN PRN PRN Reason: Dyspnea, wheezing Aspirin (Aspirin 81 Mg Tab.Chew) [facility] Last Admin: 06/10/20 07:56 Dose: 81 mg Documented by: Atorvastatin Calcium (Atorvastatin Calcium 10 Mg Tablet) 10 mg PO QHS [facility] Last Admin: 06/09/20 21:27 Dose: 10 mg Documented by: Enoxaparin Sodium (Enoxaparin 40 Mg/0.4 Ml Syringe) 40 mg SC BID [facility] Last Admin: 06/10/20 07:57 Dose: 40 mg Documented by: Furosemide (Furosemide 40 Mg/4 Ml Vial) 40 mg IV DAILY [facility] Last Admin: 06/10/20 07:56 Dose: 40 mg Documented by: Guaifenesin (Guaifenesin 10 Ml Udc (200mg/10ml)) 20 ml PO Q4H PRN PRN PRN Reason: COUGH Hydralazine HCl (Hydralazine 20 Mg/Ml Vial) 10 mg IV Q4H PRN PRN PRN Reason: SBP > 160 Vancomycin IV Pharmacy to Dose (1 ea/ Sodium Chloride) 500 mls @ 250 mls/hr IV X1 PRN; Protocol PRN Reason: Rx to Dose Vancomycin HCl 1,250 mg/ (Sodium Chloride) 275 mls @ 167 mls/hr IV Q12H [facility] Last Infusion: 06/09/20 23:54 Dose: Infused Documented by: Lisinopril (Lisinopril 20 Mg Tablet) 20 mg PO DAILY [facility] Last Admin: 06/10/20 07:57 Dose: 20 mg Documented by: Magnesium Hydroxide (Magnesium Hydroxide 30 Ml Udc) 30 ml PO DAILY PRN PRN PRN Reason: Constipation Melatonin (Melatonin 3 Mg Tablet) 3 mg PO QHS PRN PRN PRN Reason: INSOMNIA Metoprolol Tartrate (Metoprolol Tartrate 50 Mg Tablet) 50 mg PO BID [facility] Last Admin: 06/10/20 08:12 Dose: Not Given Documented by: Morphine Sulfate (Morphine 2 Mg/Ml Syringe) 2 mg IV Q3H PRN PRN PRN Reason: Pain Score 6-10 Nitroglycerin (Nitroglycerin (Inpatient Use) 0.4 Mg Tab.Subl) 0.4 mg SUBLINGUAL Q5M PRN PRN Reason: CARDIAC/CHEST PAIN Nystatin (Nystatin Powder 15gm Bottle) 1 applic TOPICAL BID [facility]; Protocol Ondansetron HCl (Ondansetron 4 Mg/2 Ml Vial) 4 mg IV Q8H PRN PRN PRN Reason: NAUSEA/VOMITING Oxycodone HCl (Oxycodone 5 Mg Tablet) 5 mg PO Q4H PRN PRN PRN Reason: Pain Score 4-5 Prochlorperazine Edisylate (Prochlorperazine 10 Mg/2 Ml Vial) 5 mg IV Q4H PRN PRN PRN Reason: Breakthrough nausea/vomiting Psyllium Hydrophilic Mucilloid (Psyllium 1 Packet) 1 packet PO DAILY PRN PRN PRN Reason: Constipation Senna/Docusate Sodium (Senna/Docusate Sodium 1 Tablet) 2 tablet PO BID PRN PRN PRN Reason: Constipation Sodium Chloride (0.9% Saline Lock 10 Ml Syringe) 10 - 40 ml IV UD PRN PRN Reason: SALINE FLUSH Last Admin: 06/10/20 07:56 Dose: 10 ml Documented by: Spironolactone (Spironolactone 25 Mg Tablet) 25 mg PO DAILY [facility] Last Admin: 06/10/20 07:56 Dose: 25 mg Documented by: Throat Lozenges (Benzocaine/Menthol 1 Lozenge) 1 lozenge MUCOUS MEM Q2H PRN PRN PRN Reason: SORE THROAT STROKE Vital Signs/Narrative: Vital Signs Temp Pulse Resp BP Pulse Ox 06/10/20 08:12 59 L 107/70 06/10/20 07:49 98.2 F 59 L 18 107/70 94 Medical Necessity - Tobacco Use Smoking Status: Never smoker Tobacco Use: Non-smoker Assessment/Plan All Active Problems Cellulitis of right lower leg (Acute) Failure of outpatient treatment (Acute) #RLE cellulitis * failed outpatient treatment * on IV vancomycin * wound cultures show no growth so far * duplex of RLE was negative for DVT * wound care on board * # Chronic Bilateral LE edema * BETTY wraps * being diuresed with lasix IV 40mg daily * wound care on board * # Hypertension: on metoprolol, lisinopril and spironolactone. Hyperkalemia from yesterday has resolved. #Hyperkalemia: resolved. # Morbid obesity: weight and lifestyle changes encouraged. DVT prophylaxis: lovenox 40mg bid. Inpatient E&M: [id number] Subs Hosp L2
[2020-06-10] MEDS: Nystatin Powder 15gm Bottle 1 APPLIC TOPICAL ×2 (11:58→21:27)
--- NOTE | 2020-06-10 13:46 | PCM.RX.CS ---
Consult Pharmacy has been consulted to manage selected antiobiotic: Vancomycin Type of Consult: Follow-up Suspected Infection: Skin/Soft tissue Labs: Sodium 136 mmol/L (136-145) 06/10/20 06:56 Potassium 3.8 mmol/L (3.5-5.1) 06/10/20 06:56 Chloride 102 mmol/L (98-107) 06/10/20 06:56 Carbon Dioxide 27.0 mmol/L (21.0-32.0) 06/10/20 06:56 Anion Gap 7 (5-15) 06/10/20 06:56 BUN 28 mg/dL (7-18) H 06/10/20 06:56 Creatinine 1.01 mg/dL (0.55-1.02) 06/10/20 06:56 Est GFR (MDRD) Af Amer 68 mL/min (>60) 06/10/20 06:56 Est GFR (MDRD) Non-Af 57 mL/min (>60) L 06/10/20 06:56 BUN/Creatinine Ratio 27.7 RATIO (10-20) H 06/10/20 06:56 Glucose 80 mg/dL (74-106) 06/10/20 06:56 Vancomycin Trough 23.6 ug/mL (5.0-15.0) H 06/10/20 10:27 Microbiology: Microbiology 06/09/20 01:34 Wound - Leg, Right Gram Stain - Final 06/09/20 01:34 Wound - Leg, Right Wound Culture - Preliminary No growth-Final to follow Goal Trough: 15-20 mcg/mL Pharmacy Plan for Drug Dosing: VANCOMYCIN LEVEL RECEIVED Current Vancomycin Dose: 1250mg IV Q12hr Number of Doses Received: 4 (3 prior to trough draw, 1 after) Vancomycin Level: 23.6 Hours Since Last Dose: 12hr Renal Function: 1.01 Renal Function Trend: stable Lab/Micro: WCx NGTD Vancomycin Plan/Comments: Trough resulted in a value of 23.6 (goal 15-20), drawn appropriately ~12hrs from last dose. Pt did get additional dose after trough was drawn. Will plan on obtaining a random level 24hrs from last administered dose to assess at that time. HOLD further doses for now. Pending Level: *RANDOM* trough 06/11/20 @1200 Pharmacy Service will continue to monitor and adjust dosing as required.
[2020-06-10] MEDS: Atorvastatin Calcium 10 MG Tablet PO (21:27)
[2020-06-10] MEDS: Metoprolol Tartrate 50 MG Tablet PO (21:27)
[2020-06-11] VITALS (8 sets, daily range): BP systolic 98–116; BP diastolic 60–75; PULSE 86–96; RESP 14–18; TEMP 36.7–37.1; O2SAT 92–96
[2020-06-11 05:59] LABS: Absolute Lymphocyte Count 1.36 X10^3/uL (0.83-4.51); Basophil% 0.9 % (0-1); Eosinophil# 0.55 X10^3/uL; Eosinophils% 4.7 % (0-5); Hemoglobin 13.6 g/dL (12.0-15.0); Lymphocyte # 1.36 X10^3/ul (4.0); Lymphocyte % 11.7 % (19-41); Mean Corp Hgb Conc 32.4 g/dL (32-36); Mean Corpuscular Volume 92.5 fL (81-99); Mean Platelet Vol. 9.6 fl (6.2-12.0); Monocyte# 1.57 X10^3/uL; Monocyte% 13.5 % (0-10); NRBC Flagged by Analyzer 0 % (0-5); Neutrophil # 7.99 X10^3/uL (2.7-7.7); Neutrophil % 68.9 % (47-70); POSITIVE DIFFERENTIAL YES; Platelet Count 255 K/mm3 (150-450); RBC Distribution Width CV 14.2 % (11.6-14.6); RBC Distribution Width SD 48.4 fl (35.1-43.9); Red Blood Count 4.54 M/mm3 (4.2-5.4); White Blood Count 11.6 K/mm3 (4.4-11.0)
[2020-06-11 06:02] LABS: Differential Indicated SCAN CRITERIA MET
[2020-06-11 06:29] LABS: Anion Gap 7 (5-15); BUN 31 mg/dL (7-18); BUN/Creat Ratio 30.4 RATIO (10-20); Calcium,Total 8.6 mg/dL (8.5-10.1); Chloride 100 mmol/L (98-107); Creatinine, Serum 1.02 mg/dL (0.55-1.02); EST Glomerular Filtration Rate 56 mL/min (>60); Est Glom Filt Rate - Afr Amer 68 mL/min (>60); Estimated Creatinine Clearance 33.18 ml/min; Glucose 89 mg/dL (74-106); Sodium Level 136 mmol/L (136-145)
[2020-06-11 06:57] LABS: Differential Comment SCANNED
--- NOTE | 2020-06-11 08:51 | NURSING ---
Removed dressing from the right leg for Dr Pantoja to assess the leg. there was no drainage noted on the old dressing. still moderate redness noted. slight warmth. will leave [facility] at this time.
[2020-06-11] MEDS: Metoprolol Tartrate 50 MG Tablet PO ×2 (09:07→22:13)
[2020-06-11] MEDS: Lisinopril 20 MG Tablet PO (09:07)
[2020-06-11] MEDS: Aspirin 81 MG TAB.CHEW PO (09:08)
[2020-06-11] MEDS: Spironolactone 25 MG Tablet PO (09:08)
[2020-06-11] MEDS: Furosemide 40 MG/4 ML Vial IV (09:08)
[2020-06-11] MEDS: Enoxaparin 40 MG/0.4 ML Syringe SC ×2 (09:08→22:13)
[2020-06-11] MEDS: Nystatin Powder 15gm Bottle 1 APPLIC TOPICAL ×2 (09:08→22:12)
[2020-06-11] MEDS: 0.9% Saline Lock 10 ML Syringe IV ×2 (09:10→15:10)
[2020-06-11 11:42] LABS: Pathologist Review Reviewed
[2020-06-11 12:58] LABS: Vancomycin, Random Level 19.6 ug/mL (0.0-15.0)
--- NOTE | 2020-06-11 13:26 | PN_ITS ---
Patient Problems: Active and Suspected Problems Cellulitis of right lower leg (Acute) Failure of outpatient treatment (Acute) Subjective: Patient seen and examined. She has no complaints and feels well. Plan was to discharge patient today but her white cell count is trended up slightly to 11.6 and her right lower extremity is still erythematous and warm. Review of systems otherwise negative. She has remained hemodynamically stable. Vitals/I&O's: Vital Signs Temp Pulse Resp BP Pulse Ox 98.0 F 96 14 116/75 92 06/11/20 09:02 06/11/20 09:07 06/11/20 09:02 06/11/20 09:02 06/11/20 09:02 Oxygen Delivery Method Room Air Weight: 271 lb 9.752 oz Body Mass Index (BMI) 54.1 Intake and Output for Last 24 Hours 06/09/20 06/10/20 06/11/20 23:59 23:59 23:59 Intake Total 1090 / 1090 275 / 275 Output Total 3950 / 3950 700 / 700 300 / 300 Balance -2860 / -2860 -425 / -425 -300 / -300 General: Alert, Oriented x3, Cooperative, No apparent distress HEENT: Atraumatic, PERRLA, EOMI, Normocephalic Oral: Dry Mucosa Neck: Supple, No JVD, Negative Carotid Bruits Lungs: Clear to auscultation, Normal air movement, No rhonchi, No wheeze Cardiovascular: Regular rate, Regular Rhythm, Normal S1, Normal S2, No murmurs Abdomen: Bowel Sounds Present, Soft, Non Tender, Non-Distended, No Hepato- splenomegaly Extremities: No clubbing, No cyanosis, No edema, Capillary Refill Less than 3 Seconds Skin: - - RLE erythematous, warm to touch from mid [place] to dorsum of right foot. nontender Musculoskeletal: No Tenderness to Palpation of Joints or Extremities Lymphatic: No Cervical, Supraclavicular, or Inguinal Adenopathy Neurological: Cranial nerves II-XII grossly intact, Neuro grossly intact, Motor Exam 5/5 strength throughout Psych/Mental Status: Normal Affect, Appropriate, Alert and oriented to time, place, person, mood and affect Microbiology Past 72 Hours 06/08/20 22:30 Blood Culture (Wb) - Anticubital Right Blood Culture - Preliminary No growth in 48 hours. 06/08/20 22:40 Blood Culture (Wb) - Left Hand Blood Culture - Preliminary No growth in 48 hours. 06/09/20 01:34 Wound - Leg, Right Gram Stain - Final 06/09/20 01:34 Wound - Leg, Right Wound Culture - Preliminary No growth-Final to follow Laboratory Results 06/11/20 05:20: WBC 11.6 H, RBC 4.54, Hgb 13.6, Hct 42.0, MCV 92.5, MCH 30.0, MCHC 32.4, RDW Std Deviation 48.4 H, RDW Coeff of Damian 14.2, Plt Count 255, MPV 9.6, Immature Gran % (Auto) 0.300, Neut % (Auto) 68.9, Lymph % (Auto) 11.7 L, [place] % (Auto) 13.5 H, Eos % (Auto) 4.7, Baso % (Auto) 0.9, Absolute Neuts (auto) 8.0 H, Absolute Lymphs (auto) 1.36, Nucleated RBC % 0, Differential Comment SCANNED, Diff Path Review Reviewed 06/11/20 05:20: Sodium 136, Potassium 4.0, Chloride 100, Carbon Dioxide 29.0, Anion Gap 7, BUN 31 H, Creatinine 1.02, Estim Creat Clear Calc 33.18, Est GFR (MDRD) Af Amer 68, Est GFR (MDRD) Non-Af 56 L, BUN/Creatinine Ratio 30.4 H, Glucose 89, Calcium 8.6 06/11/20 11:58: Random Vancomycin 19.6 H Current Medications Acetaminophen (Acetaminophen 325 Mg Tablet) 650 mg PO Q6H PRN PRN PRN Reason: Pain Score 1-10/Temp > 100.7 F Al Hydroxide/Mg Hydroxide (Mag Hydrox/Al Hydrox/Simeth 30 Ml Udc) 30 ml PO Q6H PRN PRN PRN Reason: Gastric Burning Albuterol Sulfate (Albuterol 2.5 Mg/3 Ml Vial.Neb.) 2.5 mg INHALATION Q2H PRN PRN PRN Reason: Dyspnea, wheezing Aspirin ([facility] 81 Mg [facility].Chew) [facility] Admin: 06/11/20 09:08 Dose: 81 mg Documented by: Atorvastatin Calcium (Atorvastatin Calcium 10 Mg Tablet) 10 mg PO QHS [facility] Last Admin: 06/10/20 21:27 Dose: 10 mg Documented by: Enoxaparin Sodium (Enoxaparin 40 Mg/0.4 Ml Syringe) 40 mg SC BID [facility] Last Admin: 06/11/20 09:08 Dose: 40 mg Documented by: Furosemide (Furosemide 40 Mg/4 Ml Vial) 40 mg IV DAILY [facility] Last Admin: 06/11/20 09:08 Dose: 40 mg Documented by: Guaifenesin (Guaifenesin 10 Ml Udc (200mg/10ml)) 20 ml PO Q4H PRN PRN PRN Reason: COUGH Hydralazine HCl (Hydralazine 20 Mg/Ml Vial) 10 mg IV Q4H PRN PRN PRN Reason: SBP > 160 Vancomycin IV Pharmacy to Dose (1 ea/ Sodium Chloride) 500 mls @ 250 mls/hr IV X1 PRN; Protocol PRN Reason: Rx to Dose Lisinopril (Lisinopril 20 Mg Tablet) 20 mg PO DAILY [facility] Last Admin: 06/11/20 09:07 Dose: 20 mg Documented by: Magnesium Hydroxide (Magnesium Hydroxide 30 Ml Udc) 30 ml PO DAILY PRN PRN PRN Reason: Constipation Melatonin (Melatonin 3 Mg Tablet) 3 mg PO QHS PRN PRN PRN Reason: INSOMNIA Metoprolol Tartrate (Metoprolol Tartrate 50 Mg Tablet) 50 mg PO BID [facility] Last Admin: 06/11/20 09:07 Dose: 50 mg Documented by: Morphine Sulfate (Morphine 2 Mg/Ml Syringe) 2 mg IV Q3H PRN PRN PRN Reason: Pain Score 6-10 Nitroglycerin (Nitroglycerin (Inpatient Use) 0.4 Mg Tab.Subl) 0.4 mg SUBLINGUAL Q5M PRN PRN Reason: CARDIAC/CHEST PAIN Nystatin (Nystatin Powder 15gm Bottle) 1 applic TOPICAL BID [facility]; Protocol Last Admin: 06/11/20 09:08 Dose: 1 applicatio Documented by: Ondansetron HCl (Ondansetron 4 Mg/2 Ml Vial) 4 mg IV Q8H PRN PRN PRN Reason: NAUSEA/VOMITING Oxycodone HCl (Oxycodone 5 Mg Tablet) 5 mg PO Q4H PRN PRN PRN Reason: Pain Score 4-5 Prochlorperazine Edisylate (Prochlorperazine 10 Mg/2 Ml Vial) 5 mg IV Q4H PRN PRN PRN Reason: Breakthrough nausea/vomiting Psyllium Hydrophilic Mucilloid (Psyllium 1 Packet) 1 packet PO DAILY PRN PRN PRN Reason: Constipation Senna/Docusate Sodium (Senna/Docusate Sodium 1 Tablet) 2 tablet PO BID PRN PRN PRN Reason: Constipation Sodium Chloride (0.9% Saline Lock 10 Ml Syringe) 10 - 40 ml IV UD PRN PRN Reason: SALINE FLUSH Last Admin: 06/11/20 09:10 Dose: 10 ml Documented by: Spironolactone (Spironolactone 25 Mg Tablet) 25 mg PO DAILY [facility] Last Admin: 06/11/20 09:08 Dose: 25 mg Documented by: Throat Lozenges (Benzocaine/Menthol 1 Lozenge) 1 lozenge MUCOUS MEM Q2H PRN PRN PRN Reason: SORE THROAT Medical Necessity - Tobacco Use Smoking Status: Never smoker Tobacco Use: Non-smoker Assessment/Plan All Active Problems Cellulitis of right lower leg (Acute) Failure of outpatient treatment (Acute) #RLE cellulitis * failed outpatient treatment * on IV vancomycin; RLE still mildly erythematous and warm to touch * wbc slightly up to 11.6 today. * wound cultures show no growth so far * duplex of RLE was negative for DVT * wound care on board * continue IV # Chronic Bilateral LE edema * BETTY wraps * being diuresed with lasix IV 40mg daily * wound care on board * # Hypertension: on metoprolol, lisinopril and spironolactone. Hyperkalemia has resolved. #Hyperkalemia: resolved. # Morbid obesity: weight and lifestyle changes encouraged. DVT prophylaxis: lovenox 40mg bid. Inpatient E&M: 66979 Subs Hosp L2
--- NOTE | 2020-06-11 14:01 | PHA.PHARE_ITS ---
Consult Pharmacy has been consulted to manage selected antiobiotic: Vancomycin Type of Consult: Follow-up Suspected Infection: Skin/Soft tissue Prior Doses of Antibiotics Received/Current Regimen: the patient was previously on 1250mg IV q12h but that has been held since yesterday after the dose at noon due to a high trough value of 23.6 Labs: Sodium 136 mmol/L (136-145) 06/11/20 05:20 Potassium 4.0 mmol/L (3.5-5.1) 06/11/20 05:20 Chloride 100 mmol/L (98-107) 06/11/20 05:20 Carbon Dioxide 29.0 mmol/L (21.0-32.0) 06/11/20 05:20 Anion Gap 7 (5-15) 06/11/20 05:20 BUN 31 mg/dL (7-18) H 06/11/20 05:20 Creatinine 1.02 mg/dL (0.55-1.02) 06/11/20 05:20 Est GFR (MDRD) Af Amer 68 mL/min (>60) 06/11/20 05:20 Est GFR (MDRD) Non-Af 56 mL/min (>60) L 06/11/20 05:20 BUN/Creatinine Ratio 30.4 RATIO (10-20) H 06/11/20 05:20 Glucose 89 mg/dL (74-106) 06/11/20 05:20 Vancomycin Trough 23.6 ug/mL (5.0-15.0) H 06/10/20 10:27 Random Vancomycin 19.6 ug/mL (0.0-15.0) H 06/11/20 11:58 Microbiology: Microbiology 06/08/20 22:30 Blood Culture (Wb) - Anticubital Right Blood Culture - Preli minary No growth in 48 hours. 06/08/20 22:40 Blood Culture (Wb) - Left Hand Blood Culture - Preliminary No growth in 48 hours. 06/09/20 01:34 Wound - Leg, Right Gram Stain - Final 06/09/20 01:34 Wound - Leg, Right Wound Culture - Preliminary No growth-Final to follow Weight used for dosin.2 kg Estimated Creatinine Clearance: 56ml/min Goal Trough: 15-20 mcg/mL Pharmacy Plan for Drug Dosing: The random level drawn today at 11:58 came back at 19.6. This is back below 20 so, per policy, dosing can be resumed. Will restart at 1500mg IV q24h and recheck a trough before the 3rd new dose. The patient's CrCl of 56 ml/min was calculated using an adjusted body weight of 76.6kg. Pharmacy Service will continue to monitor and adjust dosing as required. Follow-Up Labs: Trough Vancomycin Labs to be done on [date and time ordered]: 06/13/20 14:30
[2020-06-11] MEDS: Atorvastatin Calcium 10 MG Tablet PO (22:13)
[2020-06-12] VITALS (8 sets, daily range): BP systolic 93–153; BP diastolic 55–90; PULSE 62–102; RESP 18–20; TEMP 36.2–36.6; O2SAT 95–99
[2020-06-12 06:13] LABS: Absolute Lymphocyte Count 1.19 X10^3/uL (0.83-4.51); Absolute Neutrophil Count 7.5 X10^3/uL (2.0-7.7); Basophil# 0.07 X10^3/uL; Basophil% 0.7 % (0-1); Eosinophil# 0.53 X10^3/uL; Eosinophils% 5.1 % (0-5); Hematocrit 41.3 % (37-47); Hemoglobin 12.9 g/dL (12.0-15.0); Lymphocyte # 1.19 X10^3/ul (4.0); Lymphocyte % 11.5 % (19-41); Mean Corp Hgb Conc 31.2 g/dL (32-36); Mean Corpuscular Volume 92.8 fL (81-99); Mean Platelet Vol. 9.2 fl (6.2-12.0); Monocyte# 0.98 X10^3/uL; Monocyte% 9.5 % (0-10); NRBC Flagged by Analyzer 0 % (0-5); Neutrophil # 7.52 X10^3/uL (2.7-7.7); Neutrophil % 72.7 % (47-70); Platelet Count 233 K/mm3 (150-450); RBC Distribution Width CV 14.3 % (11.6-14.6); RBC Distribution Width SD 49.5 fl (35.1-43.9); Red Blood Count 4.45 M/mm3 (4.2-5.4); White Blood Count 10.3 K/mm3 (4.4-11.0)
[2020-06-12 06:39] LABS: Anion Gap 4 (5-15); BUN 36 mg/dL (7-18); BUN/Creat Ratio 31.9 RATIO (10-20); Calcium,Total 8.3 mg/dL (8.5-10.1); Chloride 102 mmol/L (98-107); Creatinine, Serum 1.13 mg/dL (0.55-1.02); EST Glomerular Filtration Rate 50 mL/min (>60); Est Glom Filt Rate - Afr Amer 60 mL/min (>60); Estimated Creatinine Clearance 29.95 ml/min; Glucose 117 mg/dL (74-106); Potassium 4.3 mmol/L (3.5-5.1); Sodium Level 136 mmol/L (136-145)
--- NOTE | 2020-06-12 07:53 | NURSING ---
In to reassess the right lower leg. no drainage noted. there is some dry flaky skin noted to the right anterior ankle. redness is slightly improved. pt states much less pain noted in the leg. will keep RN [employer].
[2020-06-12] MEDS: Aspirin 81 MG TAB.CHEW PO (08:54)
[2020-06-12] MEDS: 0.9% Normal Saline 1,000 ML 999 ML IV (09:00)
--- NOTE | 2020-06-12 11:16 | DCINST_ITS ---
- Discharge Diagnoses Current Active Problems: Current Active and Chronic Problems Hypertension (Chronic) Hyperlipidemia (Chronic) Cellulitis of right lower leg (Acute) Failure of outpatient treatment (Acute) Morbidly obese (Chronic) You will use the following diet at home:: Cardiac Your food should be the consistency of: Regular Your liquids should be the consistency of: Regular/Thin Discharge Activity: Return to Normal Activity Weight Bearing Status: Weight bearing as tolerated Call your doctor if you observe: Fever of 101 or Higher, Shortness of breath, Fainting spells, Swelling in the ankles, Increased palpitations (irregular heartbeat), Uncontrolled pain Instructions: ED Cellulitis Allergies/Adverse Reactions: Allergies ciprofloxacin [From Cipro] Allergy (Verified 06/08/20 21:58) Rash Medications to take at Discharge Aspirin 81 mg PO DAILY 04/26/20 Atorvastatin Calcium [Lipitor] 10 mg PO QHS 04/26/20 Lisinopril 20 mg PO DAILY 04/26/20 Metoprolol Tartrate 50 mg PO BID 04/26/20 Spironolactone 25 mg PO DAILY 04/26/20 Cephalexin [Keflex] 500 mg PO Q6 10 Days #40 cap 06/12/20 The following prescriptions were given: Cephalexin [Keflex] 500 mg PO Q6 10 Days #40 cap Transmission Status: Pending to [facility] Primary Care Physician: Zeina Lam MD [Primary Care Provider] - Please follow up with your Primary Care Physician in: 2-3 weeks Test Results: Test results from this visit will be discussed in further detail at your follow- up appointment, if applicable. When: follow up with wound care on outpatient basisn in 1-2 weeks Proposed Discharge Date: 06/12/20
--- NOTE | 2020-06-12 11:21 | PCM.DC.SUM ---
Discharge Date and Diagnosis - Problem List Patient Problems: Active and Suspected Problems Cellulitis of right lower leg (Acute) Failure of outpatient treatment (Acute) Date of Admission: 06/08/20 Date of Discharge: 06/12/20 - Primary Discharge Diagnosis Acute Problems: Active Problems Cellulitis of right lower leg (Acute) Failure of outpatient treatment (Acute) - Secondary Discharge Diagnosis Chronic Problems: Chronic Problems Hypertension (Chronic) Hyperlipidemia (Chronic) Morbidly obese (Chronic) Hospital Course and Treatment Consultations 06/09/20 00:40 Consult: Onc/Wound/information technology director Routine Comment: Summary of Care Provided: The patient is a 75 year old F with a past medical history as outlined was admitted through the ED on 06/08/2020 with a complaint of redness, swelling and seeping from the right lower extremity. She had been on 5 days of doxycycline and Keflex for cellulitis but said her symptoms were getting worse. Has not been taking care of her leg at home. However she decided coming to the ED because it was getting worse. She was admitted and managed for cellulitis of the right lower extremity. She denied having any trauma to her leg or any insect bites of animal bites but did note that she had chronic stasis dermatitis. She was started on IV vancomycin. X-ray done showed no evidence of osteomyelitis. Blood cultures done were negative. Wound care was also consulted. On admission, patient's potassium was elevated but this was thought to be possibly due to hemolysis. On repeat, it was 4.0. Patient remained stable and right lower extremity redness and swelling improved markedly. She was discharged home on 06/12/2020 prescription for p.o. Keflex for 10 days. She is to follow-up with her primary care doctor and is also to follow-up with wound care. Seen and examined prior to discharge. She had no complaints. She felt well. Review of symptoms otherwise negative. Labs and vitals reviewed. Medication reviewed and reconciled. O/E: Vital Signs Temp Pulse Resp BP Pulse Ox 97.2 F L 99 20 H 130/79 H 95 06/12/20 11:58 06/12/20 12:03 06/12/20 12:03 06/12/20 11:58 06/12/20 14:34 [] General: Alert, Oriented x3, Cooperative, No apparent distress HEENT: Atraumatic, PERRLA, EOMI, Normocephalic Oral: Dry Mucosa Neck: Supple, No JVD, Negative Carotid Bruits Lungs: Clear to auscultation, Normal air movement, No rhonchi, No wheeze Cardiovascular: Regular rate, Regular Rhythm, Normal S1, Normal S2, No murmurs Abdomen: Bowel Sounds Present, Soft, Non Tender, Non-Distended, No Hepato-splenomegaly Extremities: No clubbing, No cyanosis, No edema, Capillary Refill Less than 3 Seconds Skin: - - RLE redness and swelling is much better Musculoskeletal: No Tenderness to Palpation of Joints or Extremities Lymphatic: No Cervical, Supraclavicular, or Inguinal Adenopathy Neurological: Cranial nerves II-XII grossly intact, Neuro grossly intact, Motor Exam 5/5 strength throughout Psych/Mental Status: Normal Affect, Appropriate, Alert and oriented to time, place, person, mood and affect Plan is for discharge home today. Patient Problems: Active and Suspected Problems Cellulitis of right lower leg (Acute) Failure of outpatient treatment (Acute) - Physical Exam Vitals/I&O's: Vital Signs Temp Pulse Resp BP Pulse Ox 97.8 F 91 18 132/81 H 96 06/12/20 08:51 06/12/20 10:42 06/12/20 08:51 06/12/20 10:42 06/12/20 08:51 Oxygen Delivery Method Room Air Weight: 274 lb 14.663 oz Body Mass Index (BMI) 54.1 Orthostatic Vital Signs Start: 06/12/20 10:42 Freq: q24h Status: Active Protocol: Activity Type Activity Date Activity User E-Sign Co-Sign Detail Recorded Client Recorded Date Recorded By Document 06/12/20 10:42 [id number] 06/12/20 10:50 NANCY 06/12/20 10:42 Orthostatic Vitals Standing -Blood Pressure (90/60-120/80 mm Hg) 153/87 H -Extremity Use Left Arm -Pulse Rate (60-100 beats/min) 102 H Sitting -Blood Pressure (90/60-120/80 mm Hg) 143/89 H -Extremity Use Left Arm -Pulse Rate (60-100 beats/min) 93 Lying -Blood Pressure (90/60-120/80 mm Hg) 132/81 H -Extremity Use Left Arm -Pulse Rate (60-100 beats/min) 91 Intake and Output for Last 24 Hours 06/10/20 06/11/20 06/12/20 23:59 23:59 23:59 Intake Total 275 / 275 630 / 630 1100 / 1100 Output Total 700 / 700 1850 / 1850 650 / 650 Balance -425 / -425 -1220 / -1220 450 / 450 Microbiology Past 72 Hours 06/09/20 01:34 Wound - Leg, Right Gram Stain - Final 06/09/20 01:34 Wound - Leg, Right Wound Culture - Final No growth aerobically. 06/08/20 22:30 Blood Culture (Wb) - Anticubital Right Blood Culture - Preliminary No growth in 48 hours. 06/08/20 22:40 Blood Culture (Wb) - Left Hand Blood Culture - Preliminary No growth in 48 hours. Laboratory Results 06/11/20 05:20: Diff Path Review Reviewed 06/11/20 11:58: Random Vancomycin 19.6 H 06/12/20 05:55: WBC 10.3, RBC 4.45, Hgb 12.9, Hct 41.3, MCV 92.8, MCH 29.0, MCHC 31.2 L, RDW Std Deviation 49.5 H, RDW Coeff of Damian 14.3, Plt Count 233, MPV 9.2, Immature Gran % (Auto) 0.500, Neut % (Auto) 72.7 H, Lymph % (Auto) 11.5 L, [place] % (Auto) 9.5, Eos % (Auto) 5.1 H, Baso % (Auto) 0.7, Absolute Neuts (auto) 7.5, Absolute Lymphs (auto) 1.19, Nucleated RBC % 0 06/12/20 05:55: Sodium 136, Potassium 4.3, Chloride 102, Carbon Dioxide 30.0, Anion Gap 4 L, BUN 36 H, Creatinine 1.13 H, Estim Creat Clear Calc 29.95, Est GFR (MDRD) Af Amer 60, Est GFR (MDRD) Non-Af 50 L, BUN/Creatinine Ratio 31.9 H, Glucose 117 H, Calcium 8.3 L Current Medications Acetaminophen (Acetaminophen 325 Mg Tablet) 650 mg PO Q6H PRN PRN PRN Reason: Pain Score 1-10/Temp > 100.7 F Al Hydroxide/Mg Hydroxide (Mag Hydrox/Al Hydrox/Simeth 30 Ml Udc) 30 ml PO Q6H PRN PRN PRN Reason: Gastric Burning Albuterol Sulfate (Albuterol 2.5 Mg/3 Ml Vial.Neb.) 2.5 mg INHALATION Q2H PRN PRN PRN Reason: Dyspnea, wheezing Aspirin (Aspirin 81 Mg Tab.Chew) 81 mg PO DAILYCM [facility] Last Admin: 06/12/20 08:54 Dose: 81 mg Documented by: Atorvastatin Calcium (Atorvastatin Calcium 10 Mg Tablet) 10 mg PO QHS [facility] Last Admin: 06/11/20 22:13 Dose: 10 mg Documented by: Enoxaparin Sodium (Enoxaparin 40 Mg/0.4 Ml Syringe) 40 mg SC BID [facility] Last Admin: 06/11/20 22:13 Dose: 40 mg Documented by: Furosemide (Furosemide 40 Mg/4 Ml Vial) 40 mg IV DAILY [facility] Last Admin: 06/12/20 11:13 Dose: Not Given Documented by: Guaifenesin (Guaifenesin 10 Ml Udc (200mg/10ml)) 20 ml PO Q4H PRN PRN PRN Reason: COUGH Hydralazine HCl (Hydralazine 20 Mg/Ml Vial) 10 mg IV Q4H PRN PRN PRN Reason: SBP > 160 Vancomycin IV Pharmacy to Dose (1 ea/ Sodium Chloride) 500 mls @ 250 mls/hr IV X1 PRN; Protocol PRN Reason: Rx to Dose Vancomycin HCl 1,500 mg/ (Sodium Chloride) 530 mls @ 250 mls/hr IV Q24H [facility] Last Infusion: 06/11/20 23:16 Dose: Infused Documented by: Lisinopril (Lisinopril 20 Mg Tablet) 20 mg PO DAILY [facility] Last Admin: 06/11/20 09:07 Dose: 20 mg Documented by: Magnesium Hydroxide (Magnesium Hydroxide 30 Ml Udc) 30 ml PO DAILY PRN PRN PRN Reason: Constipation Melatonin (Melatonin 3 Mg Tablet) 3 mg PO QHS PRN PRN PRN Reason: INSOMNIA Metoprolol Tartrate (Metoprolol Tartrate 50 Mg Tablet) 50 mg PO BID [facility] Last Admin: 06/11/20 22:13 Dose: 50 mg Documented by: Morphine Sulfate (Morphine 2 Mg/Ml Syringe) 2 mg IV Q3H PRN PRN PRN Reason: Pain Score 6-10 Nitroglycerin (Nitroglycerin (Inpatient Use) 0.4 Mg Tab.Subl) 0.4 mg SUBLINGUAL Q5M PRN PRN Reason: CARDIAC/CHEST PAIN Nystatin (Nystatin Powder 15gm Bottle) 1 applic TOPICAL BID [facility]; Protocol Last Admin: 06/11/20 22:12 Dose: 1 applicatio Documented by: Ondansetron HCl (Ondansetron 4 Mg/2 Ml Vial) 4 mg IV Q8H PRN PRN PRN Reason: NAUSEA/VOMITING Oxycodone HCl (Oxycodone 5 Mg Tablet) 5 mg PO Q4H PRN PRN PRN Reason: Pain Score 4-5 Prochlorperazine Edisylate (Prochlorperazine 10 Mg/2 Ml Vial) 5 mg IV Q4H PRN PRN PRN Reason: Breakthrough nausea/vomiting Psyllium Hydrophilic Mucilloid (Psyllium 1 Packet) 1 packet PO DAILY PRN PRN PRN Reason: Constipation Senna/Docusate Sodium (Senna/Docusate Sodium 1 Tablet) 2 tablet PO BID PRN PRN PRN Reason: Constipation Sodium Chloride (0.9% Saline Lock 10 Ml Syringe) 10 - 40 ml IV UD PRN PRN Reason: SALINE FLUSH Last Admin: 06/11/20 15:10 Dose: 10 ml Documented by: Spironolactone (Spironolactone 25 Mg Tablet) 25 mg PO DAILY [facility] Last Admin: 06/11/20 09:08 Dose: 25 mg Documented by: Throat Lozenges (Benzocaine/Menthol 1 Lozenge) 1 lozenge MUCOUS MEM Q2H PRN PRN PRN Reason: SORE THROAT Discharge Diet: Low fat/ Low Cholesterol Discharge Activity: Return to Normal Activity Weight Bearing Status: Weight bearing as tolerated Call your doctor if you observe: Fever of 101 or Higher, Shortness of breath, Fainting spells, Swelling in the ankles, Increased palpitations (irregular heartbeat), Uncontrolled pain Home Medications: Medications to take at Discharge Aspirin 81 mg PO DAILY 04/26/20 Atorvastatin Calcium [Lipitor] 10 mg PO QHS 04/26/20 Lisinopril 20 mg PO DAILY 04/26/20 Metoprolol Tartrate 50 mg PO BID 04/26/20 Spironolactone 25 mg PO DAILY 04/26/20 Cephalexin [Keflex] 500 mg PO Q6 10 Days #40 cap 06/12/20 Following Prescriptions Were Given to Patient: Cephalexin [Keflex] 500 mg PO Q6 10 Days #40 cap Transmission Status: Received by [facility] Primary Care Physician: Zeina Lam MD [Primary Care Provider] - Please follow up with your Primary Care Physician in: 2-3 weeks When: follow up with wound care on outpatient basis in 1-2 weeks Patient Instructions: ED Cellulitis Disposition: Home Minutes spent on discharge:: 50 Patient Condition:: Stable Medical Necessity - Tobacco Use Smoking Status: Never smoker Tobacco Use: Non-smoker Meaningful Use Info Meaningful Use Diagnoses (Choose all that apply): None applicable Inpatient E&M: [id number] [facility]
[2020-06-12] MEDS: Metoprolol Tartrate 50 MG Tablet PO (12:03)
[2020-06-12] MEDS: Lisinopril 20 MG Tablet PO (12:03)
[2020-06-12] MEDS: Spironolactone 25 MG Tablet PO (12:03)
[2020-06-12] MEDS: Nystatin Powder 15gm Bottle 1 APPLIC TOPICAL (12:04)
--- NOTE | 2020-06-12 13:30 | CASEMGMT ---
RN CM in to discuss discharge needs. Patient denies needs at discharge. No further questions or concerns at this time.
[2020-06-12] MEDS: 0.9% Saline Lock 10 ML Syringe IV (14:24)
--- NOTE | 2020-06-13 16:10 | CASEMGMT ---
CHACE FAITH Discharge Follow-Up Phone Call. Erna: 13 Strata:3 Discharge Date: 06/12/20 Adm Dx: Cellulitis Call to pt to inquire about how she has been doing since being discharged from the hospital. She states, I'm doing just fine. She states she has started the antibiotic and tolerating it well. She denies having any questions about any of her medications or about the discharge instructions. Reviewed f/u appts that have been scheduled [facility] and at her PCP's office w/[employer] Junito Nieves. She states she is aware and plans to keep these appts. She denies having any needs/concerns/questions. CHACE FAITH thanked pt for choosing [facility]. She stated, I had a wonderful stay. Ehsan LARA RN, CM
== END 2020-06-12 17:36 | disposition home or self-care (01) | DRG 603 ==
LOC: ED 23:21 → MS3 06-09 00:16
PROVIDERS: Admitting Provider Family Medicine; Emergency Provider Emergency Medicine; PCP Internal Medicine; Referring Provider Family Medicine; Visit Provider Student in an Organized Health Care Education/Training Program
DX: L03.115 Cellulitis of right lower limb (principal); Z68.43 Body mass index [BMI] 50.0-59.9, adult; I10 Essential (primary) hypertension; E78.5 Hyperlipidemia, unspecified; E66.01 Morbid (severe) obesity due to excess calories; Z79.2 Long term (current) use of antibiotics; Z79.899 Other long term (current) drug therapy; I89.0 Lymphedema, not elsewhere classified; R60.0 Localized edema
CPT/HCPCS: 36415; 73590; 80048; 80053; 80202; 83605; 83735; 84132; 85025; 87040; 87070; 87205; 87640; 93005; 93971; 97110; 97116; 97162; 97166; 97530; 97802; 99285; J7030; J7040; J7050; A4216; J1940

== ENCOUNTER 2020-07-02 10:00 | Outpatient (RCR) | payer MEDICARE, SELFPAY ==
[2020-06-09 00:41] VITALS: BMI 54.1
[2020-06-18 10:31] VITALS: BP 126/80; PULSE 103; RESP 18; TEMP 36.1; BMI 54.6
[2020-06-18 11:58] VITALS: BP 122/80
--- NOTE | 2020-06-18 12:08 | HP.PCM_ITS ---
(1) Stasis dermatitis of both legs Status: Acute Code(s): I87.2 - Venous insufficiency (chronic) (peripheral) (2) Cellulitis of right lower leg Status: Acute Code(s): L03.115 - Cellulitis of right lower limb (3) Morbidly obese Status: Chronic Code(s): E66.01 - Morbid (severe) obesity due to excess calories (4) Edema of right lower leg due to peripheral venous insufficiency Status: Acute Code(s): I87.2 - Venous insufficiency (chronic) (peripheral); R60.0 - Localized edema History of Present Illness Date of Service: 06/18/20 Chief Complaint: Follow-up cellulitis right lower leg History of Wound: 75-year-old white female with morbid obesity. Developed a recurring but not frequent cellulitis to the right lower leg. Her first episode was in [facility] that was cleared with antibiotics. And reoccurred around [place]. There is no open wounds the skin is cracked dry flaky erythematous with satellite erythema and her dorsal foot is very swollen. Patient is currently on cephalexin twice a day and she said she did best when she was on Bactrim DS. Patient had been seen in the emergency room in April and culture shows staph. Patient has been on several antibiotics but did not tolerate some is allergic to Cipro but she did state that Bactrim did work the best. We will reinstitute the Bactrim and try to repeat some testing and obtain [facility] evaluation of her leg. Patient will be scheduled for a repeat arterial brachial and venous study. Patient also be started on wrappings of Xeroform to her leg and repeat evaluation in approximately 3 weeks. If patient has difficulty before that she can be seen earlier but basically she has no wounds to be seen for. Past Medical History Past Medical History: Chronic Problems Hypertension (Chronic) Hyperlipidemia (Chronic) Morbidly obese (Chronic) Past Medical History: Peripheral vascular disease Surgical History: hysterectomy - Remote hysterectomy with possible appendectomy at that time but unclear. Allergies/Adverse Reactions: Allergies ciprofloxacin [From Cipro] Allergy (Verified 06/08/20 21:58) Rash Home Medications: Ambulatory Orders Medication Instructions Recorded Aspirin 81 mg PO DAILY 04/26/20 Atorvastatin Calcium [Lipitor] 10 mg PO QHS 04/26/20 Lisinopril 20 mg PO DAILY 04/26/20 Metoprolol Tartrate 50 mg PO BID 04/26/20 Spironolactone 25 mg PO DAILY 04/26/20 Cephalexin [Keflex] 500 mg PO Q6 10 Days #40 cap 06/12/20 - Family History Maternal Hypertension Paternal Hypertension Lives: Spouse/ Significant Other Smoking Status: Never smoker Review of Systems Constitutional: Denies: Chills, Fever Eyes: Denies: Blurred vision, Drainage, Pain HEENT: Denies: Difficulty Hearing, Difficulty Swallowing, Sore Throat, Visual Changes Cardiovascular: Denies: Chest Pain, Palpitations, Syncope Respiratory: Denies: Cough, Shortness of Breath Gastrointestinal: Denies: Abdominal Pain, Nausea, Vomiting Genitourinary: Denies: Dysuria, Frequency Musculoskeletal: Denies: Joint Pain, Muscle pain Skin: Reports: Rash. Denies: Jaundice Neurological: Denies: Balance problems, Change in Speech, Difficulty swallowing, Focal weakness Psychiatric: Denies: Anxiety, Depression Endocrine: Denies: Change in Body Habitus Hematologic/ Lymphatic: Denies: Adenopathy - Physical Exam Vital Signs Temp Pulse Resp BP 97 F L 103 H 18 122/80 H 06/18/20 10:31 06/18/20 10:31 06/18/20 10:31 06/18/20 11:58 General: Oriented x3, Cooperative, Well developed HEENT: Atraumatic, PERRLA Oral: Moist Mucosa Neck: Supple, No JVD Lungs: Clear to auscultation, Normal air movement Cardiovascular: Regular rate, Regular Rhythm Abdomen: Bowel Sounds Present, Soft, Non Tender, No Hepato-splenomegaly Extremities: No clubbing, Edema, - - Cellulitis edema right lower leg no open wounds Wound Measurements and Assessment WC - Nurse 1 - General Ulcer Measurement Start: 06/18/20 09:28 Freq: Status: Active Protocol: Activity Type Activity Date Activity User E-Sign Co-Sign Detail Recorded Client Recorded Date Recorded By Document 06/18/20 10:31 OLGA [id number] 06/18/20 10:38 RB 06/18/20 10:31 Wound Center Nurse 1 [Ulcer Assessment] 1. RLE cirumference -Combined with other wound No -Current Size (cm) - Length 0.1 -Current Size (cm) - Width 0.1 -Current Size (cm) - Depth 0.1 -Total Square Cm 0.01 -Tunneling No -Undermining/Tunneling No -Circular Undermining No -Exudate Amt None Present -Wound Margin Flat & Intact -Granulation Amt Medium (34-66%) -Granulation Quality [place],Red -Slough/Fibrin Yes -Necrosis Amt Small (1-33%) -Necrotic Tissue Type Adherent Slough -Structure Exposed N/A -Texture (Nicole-wound Skin Appearance) Assessed -Moisture (Nicole-wound Skin Appearance Assessed,Dry/ ) Scaly -Color (Nicole-wound Skin Appearance) Assessed -Temperature (Nicole-wound Skin No Abnormality Appearance) (Pt Warm) -Tenderness on Palpation (Nicole-wound No Skin Appearance) -Ulcer Cleansing Wound Cleanser -Foul Odor after Cleansing No -Anesthetic Used 4% Lidocaine Solution [Edema Assessment] -Lower Limb Edema Present Yes -Right Calf (cm) 49.5 -Right Ankle (cm) 23.7 -Left Calf (cm) 49.5 -Left Ankle (cm) 22.5 XENA - Nurse 2 - General Ulcer CM Notes Start: 06/18/20 09:28 Freq: Status: Active Protocol: Activity Type Activity Date Activity User E-Sign Co-Sign Detail Recorded Client Recorded Date Recorded By Document 06/18/20 11:02 MW [id number] 06/18/20 11:11 MW 06/18/20 11:02 Wound Center Nurse 2 [Procedure/Treatment] 1. [facility] -Time 11:03 -Correct Patient Yes -Correct Side, Site, Position Yes -Correct Procedure Yes -Procedure Performed No -Post Debridement (cm) - Length 0 -Post Debridement (cm) - Width 0 -Post Debridement (cm) - Depth 0 -Total Square (Post) (cm) 0 -Wound/Ulcer Outcome Healed- Epithelialized [See Physician Procedure note for Specifics] Pain Scale: 0-10 Numeric [Pain] -Is Patient Pain Free? Yes - Nurse 3 - General Ulcer D/C NN Start: 06/18/20 09:28 Freq: Status: Active Protocol: Activity Type Activity Date Activity User E-Sign Co-Sign Detail Recorded Client Recorded Date Recorded By Document 06/18/20 11:58 RB [id number] 06/18/20 12:00 RB 06/18/20 11:58 Wound Care Nurse 3 [Compression Applied] Right -Other barber [Post Procedure Tolerated] -Treatment Response Procedure Tolerated Well Vital Signs [Blood Pressure] -Blood Pressure (90/60-120/80 mm Hg) 122/80 H -Blood Pressure Mean (mm Hg) 94 -Source Monitor -Position Sitting -Blood Pressure Location Left Arm Pain Scale: 0-10 Numeric [Pain] -Is Patient Pain Free? Yes - Visit Discharge [Visit Discharge Information] -Discharge Condition Stable -Ambulatory Status Ambulatory -Transportation Private Auto -Medication Reconcilliation completed No & provided to patient/care provider -Clinical Summary of Care Provided Yes -Notes: xeroform applied to RLE reddness and drymess roll gauze the barber wrap Musculoskeletal: No Tenderness to Palpation of Joints or Extremities Lymphatic: No Cervical, Supraclavicular, or Inguinal Adenopathy Neurological: Cranial nerves II-XII grossly intact, Neuro grossly intact Psych/Mental Status: Normal Affect, Appropriate Debridement Note Post-Debridement Measurements/Treatment WC - Nurse 2 - General Ulcer CM Notes Start: 06/18/20 09:28 Freq: Status: Active Protocol: Activity Type Activity Date Activity User E-Sign Co-Sign Detail Recorded Client Recorded Date Recorded By Document 06/18/20 11:02 MW [id number] 06/18/20 11:11 MW 06/18/20 11:02 Wound Center Nurse 2 1. RLE cirumference -Time 11:03 -Correct Patient Yes -Correct Side, Site, Position Yes -Correct Procedure Yes -Procedure Performed No -Post Debridement (cm) - Length 0 -Post Debridement (cm) - Width 0 -Post Debridement (cm) - Depth 0 -Total Square (Post) (cm) 0 -Wound/Ulcer Outcome Healed- Epithelialized Pain Scale: 0-10 Numeric Is Patient Pain Free? Yes - Nurse 3 - General Ulcer D/C NN Start: 06/18/20 09:28 Freq: Status: Active Protocol: Activity Type Activity Date Activity User E-Sign Co-Sign Detail Recorded Client Recorded Date Recorded By Document 06/18/20 11:58 RB [id number] 06/18/20 12:00 RB 06/18/20 11:58 Wound Care Nurse 3 Right -Other barber Treatment Response Procedure Tolerated Well Vital Signs Blood Pressure (90/60-120/80 mm Hg) 122/80 H Blood Pressure Mean (mm Hg) 94 Source Monitor Position Sitting Blood Pressure Location Left Arm Pain Scale: 0-10 Numeric Is Patient Pain Free? Yes WC - Visit Discharge Discharge Condition Stable Ambulatory Status Ambulatory Transportation Private Auto Medication Reconcilliation completed & No provided to patient/care provider Clinical Summary of Care Provided Yes Notes: xeroform applied to RLE reddness and drymess roll gauze the barber wrap No debridement was completed today Assessment/Plan Active Problems Cellulitis of right lower leg (Acute) Morbidly obese (Chronic) Stasis dermatitis of both legs (Acute) Edema of right lower leg due to peripheral venous insufficiency (Acute) Assessment: Cheilitis right lower leg. Edema of the right foot and leg. Morbid obesity. Peripheral vascular disease Plan: Obtain AB and venous studies. Continue cephalexin and start Bactrim DS 1 p.o. twice daily for 14 days. Wrap right leg cellulitis in Xeroform dressing with gauze over top and ABDs. Use Barber wraps to wrap leg for edema. Follow-up sooner if having issues with increased pain swelling not improving. Follow-up in 3 weeks once we obtained all information from other facilities and results of the arterial brachial study and venous study will then refer to Dr. Tafoya.
--- NOTE | 2020-07-02 10:00 | VDLE_ITS ---
Reason For Study: Edema RIGHT LEFT CFV is compressible, spontaneous, phasic, CFV is compressible, spontaneous, phasic, competent and demonstrates normal competent, and demonstrates normal augmentation. augmentation. FV is compressible, spontaneous, phasic, FV is compressible, spontaneous, phasic, competent and demonstrates normal competent and demonstrates normal augmentation. augmentation. POP V is compressible, spontaneous, phasic, POP V is compressible, spontaneous, phasic, competent and demonstrates normal competent and demonstrates normal augmentation. augmentation. T/P Trunk is compressible. T/P Trunk is compressible. PTV is compressible. PTV is compressible. RT PerV is compressible. LT PerV is compressible. SFJ is competent and measures 0.91 x 0.79 cm. SFJ is competent and measures 1.20 x 1.25 cm. GSV proximal thigh measures 0.60 x 0.59 cm. GSV proximal thigh measures 0.65 x 0.70 cm. GSV at knee measures 0.49 x 0.47 cm. GSV at knee measures 0.50 x 0.51 cm. GSV INCOMPETENT throughout for greater than GSV INCOMPETENT throughout for greater than 0.5 seconds. 0.5 seconds. ASV at knee is INCOMPETENT for greater than ASV mid thigh is INCOMPETENT for greater than 0.5 seconds and measures 0.37 x 0.37 cm. 0.5 seconds and measures 0.32 x 0.36 cm. ASV proximal calf is INCOMPETENT for greater SSV proximal calf is INCOMPETENT for greater than 0.5 seconds and measures 0.41 x 0.43 cm. than 0.5 seconds and measures 0.32 x 0.32 cm. SSV proximal calf is competent and measures 0.22 x 0.24 cm. Procedure This is a venous duplex using B-mode, color flow and spectral Doppler. Exam performed in department. A preliminary report was called and/or faxed to . Interpretation Summary Deep veins of the lower extremities are bilaterally patent and compressible segmentally. There is no evidence of deep vein thrombosis on either side. Valvular competence appears intact within the proximal deep venous systems bilaterally. The great saphenous veins appear bilaterally patent and compressible segmentally. Sapheno-femoral junctions are bilaterally competent . Segmental valvular incompetence is noted within the great saphenous veins bilaterally. The right small saphenous vein is patent and competent. The left small saphenous vein is patent and incompetent. Right accessory saphenous veins at the knee and proximal calf are incompetent. The left accessory saphenous vein in the mid-thigh is incompetent. Ordering Physician: Cynthia Mcgraw Referring Physician: Zeina Lam Performed By: Saida Sunshine RVT
--- NOTE | 2020-07-02 10:00 | ART_ITS ---
Reason For Study: PAD Procedure A bilateral lower extremity continuous wave Doppler with analog waveform analysis,segmental pressures,and ankle brachial indexes without exercise. Left Segmental Pressures Left brachial= 86mmHg. Left posterior tibial artery = 120mmHg. Left dorsalis pedis artery = 107mmHg. Left digit = 61 mmHg. The left dorsalis pedis waveforms are triphasic. The left posterior tibial artery waveforms are triphasic. Right Segmental Pressures Right brachial= 89mmHg. Right posterior tibial artery = 105mmHg. Right dorsalis pedis artery = 101mmHg. Right digit = 45 mmHg. The right dorsalis pedis waveforms are triphasic. The right posterior tibial artery waveforms are triphasic. Indices The right ankle brachial index by the dorsalis pedis is 1.13.. The right ankle brachial index by the posterior tibial artery is 1.18. The right digital-brachial index is 0.51. The left ankle brachial index by the dorsalis pedis is 1.20. The left ankle brachial index by the posterior tibial artery is 1.35. The left digital-brachial index is 0.69. Interpretation Summary Triphasic Doppler waveforms are noted at ankle level bilaterally. Pulse-volume recording waveform amplitudes are diminished at digital level bilaterally, but satisfactory at low-thigh, calf, and ankle levels bilaterally. Resting ankle-brachial indices are normal bilaterally. Digital-brachial indices are mildly diminished bilaterally. Arterial flow appears to be normal at ankle level bilaterally. There is evidence of mild, distal, small-vessel arterial occlusive disease at digital level bilaterally. Ordering Physician: Cynthia Mcgraw Referring Physician: Zeina Lam Performed By: Saida Sunshine RVT
== END 2020-07-06 23:59 ==
LOC: CVS 10:00
PROVIDERS: PCP Internal Medicine; Referring Provider Emergency Medicine; Visit Provider Nurse Practitioner
DX: I73.9 Peripheral vascular disease, unspecified (principal); R60.0 Localized edema
CPT/HCPCS: 93923; 93970; 99213; G0463

== ENCOUNTER 2020-07-09 09:53 | Outpatient (RCR) | payer MEDICARE, SELFPAY ==
[2020-06-18 10:31] VITALS: BMI 54.6
[2020-07-07 00:37] VITALS: BP 122/80; PULSE 103; RESP 18; TEMP 36.1
[2020-07-09 10:04] VITALS: BP 135/77; PULSE 104; TEMP 35.7; BMI 54.6
--- NOTE | 2020-07-09 10:53 | PN.PCM_ITS ---
(1) Cellulitis of right lower leg Status: Acute Code(s): L03.115 - Cellulitis of right lower limb (2) Edema of right lower leg due to peripheral venous insufficiency Status: Acute Code(s): I87.2 - Venous insufficiency (chronic) (peripheral); R60.0 - Localized edema (3) Stasis dermatitis of both legs Status: Acute Code(s): I87.2 - Venous insufficiency (chronic) (peripheral) (4) Morbidly obese Status: Chronic Code(s): E66.01 - Morbid (severe) obesity due to excess calories Type of Wound Date of Service: 07/09/20 Chief Complaint: Follow-up cellulitis right lower leg History of Wound: 75-year-old white female with morbid obesity. Developed a recurring but not frequent cellulitis to the right lower leg. Her first episode was in [facility] that was cleared with antibiotics. And reoccurred around [place]. There is no open wounds the skin is cracked dry flaky erythematous with satellite erythema and her dorsal foot is very swollen. Patient is currently on cephalexin twice a day and she said she did best when she was on Bactrim DS. Patient had been seen in the emergency room in April and culture shows staph. Patient has been on several antibiotics but did not tolerate some is allergic to Cipro but she did state that Bactrim did work the best. We will reinstitute the Bactrim and try to repeat some testing and obtain [facility] evaluation of her leg. Patient will be scheduled for a repeat arterial brachial and venous study. Patient also be started on wrappings of Xeroform to her leg and repeat evaluation in approximately 3 weeks. If patient has difficulty before that she can be seen earlier but basically she has no wounds to be seen for. Progress of Wound: Right leg is healed patient had her arterial brachial and ult rasounds done of her bilateral lower leg and found to have many blockages in the lower extremities bilaterally and the saphenous area. Patient will be referred to Dr. Tafoya and given AmLactin cream for her lower legs for the dryness and flaking skin - Physical Exam Vital Signs Temp Pulse Resp BP 96.3 F L 104 H 18 135/77 H 07/09/20 10:04 07/09/20 10:04 07/07/20 00:37 07/09/20 10:04 General: Oriented x3, Cooperative, Well developed HEENT: Atraumatic, PERRLA Oral: Moist Mucosa Neck: Supple, No JVD Lungs: Clear to auscultation, Normal air movement Cardiovascular: Regular rate, Regular Rhythm Abdomen: Bowel Sounds Present, Soft, Non Tender, No Hepato-splenomegaly Extremities: No clubbing, No edema, - - Lower leg resolved Wound Measurements and Assessment WC - Nurse 1 - General Ulcer Measurement Start: 07/09/20 10:04 Freq: Status: Discharge Protocol: Activity Type Activity Date Activity User E-Sign Co-Sign Detail Recorded Client Recorded Date Recorded By Document 07/09/20 10:04 KR [id number] 07/09/20 10:11 KR Edit Status 07/09/20 10:44 BKG DAEMON Active=>Discharge [place] [id number] 07/09/20 10:44 BKG DAEMON 07/09/20 10:04 Wound Center Nurse 1 [Edema Assessment] -Right Calf (cm) 48 -Right Ankle (cm) 24 WC - Nurse 2 - General Ulcer CM Notes Start: 07/09/20 10:04 Freq: Status: Discharge Protocol: Activity Type Activity Date Activity User E-Sign Co-Sign Detail Recorded Client Recorded Date Recorded By Document 07/09/20 10:26 MW [id number] 07/09/20 10:28 MW Edit Status 07/09/20 10:44 BKG DAEMON Active=>Discharge [place] [id number] 07/09/20 10:44 BKG DAEMON 07/09/20 10:26 Pain Scale: 0-10 Numeric [Pain] -Is Patient Pain Free? No WC - Nurse 3 - General Ulcer D/C NN Start: 07/09/20 10:04 Freq: Status: Discharge Protocol: Activity Type Activity Date Activity User E-Sign Co-Sign Detail Recorded Client Recorded Date Recorded By Document 07/09/20 10:28 MW [id number] 07/09/20 10:42 MW Edit Status 07/09/20 10:44 BKG DAEMON Active=>Discharge [place] [id number] 07/09/20 10:44 BKG DAEMON 07/09/20 10:28 Wound Care Nurse 3 [Post Procedure Tolerated] -Treatment Response Procedure Tolerated Well Pain Scale: 0-10 Numeric [Pain] -Is Patient Pain Free? Yes Teaching: Wound Center [Wound Center Education] (Items with an * have Printed Materials Available- Please identify what is given to patient under the Teaching materials given to patient and caregiver Section. Discharge Instructions -Person Taught Patient,Family -Teaching Method Discussion -Response to teaching Verbalize understanding WC - Visit Discharge [Visit Discharge Information] -Discharge Condition Stable -Ambulatory Status Ambulatory -Transportation Private Auto -Accompanied by son -Medication Reconcilliation completed No & provided to patient/care provider -Clinical Summary of Care Provided Yes -Notes: healed, discharged from clinic Musculoskeletal: No Tenderness to Palpation of Joints or Extremities Lymphatic: No Cervical, Supraclavicular, or Inguinal Adenopathy Neurological: Cranial nerves II-XII grossly intact, Neuro grossly intact Psych/Mental Status: Normal Affect, Appropriate Debridement Note Post-Debridement Measurements/Treatment WC - Nurse 2 - General Ulcer CM Notes Start: 07/09/20 10:04 Freq: Status: Discharge Protocol: Activity Type Activity Date Activity User E-Sign Co-Sign Detail Recorded Client Recorded Date Recorded By Document 07/09/20 10:26 MW [id number] 07/09/20 10:28 MW 07/09/20 10:26 Pain Scale: 0-10 Numeric Is Patient Pain Free? No WC - Nurse 3 - General Ulcer D/C NN Start: 07/09/20 10:04 Freq: Status: Discharge Protocol: Activity Type Activity Date Activity User E-Sign Co-Sign Detail Recorded Client Recorded Date Recorded By Document 07/09/20 10:28 MW [id number] 07/09/20 10:42 MW 07/09/20 10:28 Wound Care Nurse 3 Treatment Response Procedure Tolerated Well Pain Scale: 0-10 Numeric Is Patient Pain Free? Yes Teaching: Wound Center Discharge Instructions -Person Taught Patient,Family -Teaching Method Discussion -Response to teaching Verbalize understanding WC - Visit Discharge Discharge Condition Stable Ambulatory Status Ambulatory Transportation Private Auto Accompanied by son Medication Reconcilliation completed & No provided to patient/care provider Clinical Summary of Care Provided Yes Notes: healed, discharged from clinic No debridement was completed today Assessment/Plan Active Problems Cellulitis of right lower leg (Acute) Morbidly obese (Chronic) Stasis dermatitis of both legs (Acute) Edema of right lower leg due to peripheral venous insufficiency (Acute) Assessment: Cellulitis right lower leg resolved. Edema of the right foot and leg resolved. Morbid obesity. Peripheral vascular disease Plan: Discharge from the wound center referral to Dr. Tafoya for further evaluation of the blockages in her veins in bilateral lower extremities. Apply AmLactin cream daily to the areas where compression stockings follow-up as needed
== END 2020-07-09 10:44 | disposition home or self-care (01) ==
LOC: WC 09:53
PROVIDERS: PCP Internal Medicine; Referring Provider Emergency Medicine; Visit Provider Nurse Practitioner
DX: L03.115 Cellulitis of right lower limb (principal); I87.2 Venous insufficiency (chronic) (peripheral); E66.01 Morbid (severe) obesity due to excess calories; I73.9 Peripheral vascular disease, unspecified; R60.0 Localized edema
CPT/HCPCS: 99212; G0463